=== PATIENT | male | born 2005 | race Caucasian/White ===

== ENCOUNTER 2024-03-23 17:23 | Emergency (ER) | payer OTHER, SELFPAY ==
--- NOTE | ~2024-03-23 | XR_ITS ---
CHEST RADIOGRAPH, PA AND LATERAL CLINICAL HISTORY: cough x 1 week . COMPARISON: None available TECHNIQUE: PA and lateral views of the chest. FINDINGS Small hiatal hernia. The remainder of the cardiomediastinal silhouette is otherwise unremarkable. The lungs are clear. Visualized osseous structures and soft tissues are unremarkable. IMPRESSION: No focal infiltrate or effusion. Reviewed, dictated and finalized at location A. [facility]
[2024-03-23 17:33] VITALS: BP 143/77; PULSE 99; RESP 20; TEMP 37.1; O2SAT 99
--- NOTE | 2024-03-23 19:23 | ED.NAVMDI ---
HPI - Nausea/Vomiting/Diarrhea General Chief complaint: Nausea/Vomiting/Diarrhea <Azucena Johnson, REGIONAL OWNER OPERATOR TRUCK DRIVER - Last Filed: 03/23/24 19:27> Stated complaint: n/v/d, dizziness <Azucena Johnson REGIONAL OWNER OPERATOR TRUCK DRIVER - Last Filed: 03/23/24 19:27> Time Seen by Provider: 03/23/24 19:20 <Azucena Johnson REGIONAL OWNER OPERATOR TRUCK DRIVER - Last Filed: 03/23/24 19:27> Focused HPI: Patient is a 19-year-old male who presents to the ER with a one-week history cough, sore throat, diarrhea, hemoptysis. He reports he went to his school clinic where they ?gave me a bunch of meds and sent me back home. Patient reports today he vomited and decided he should come to the ER for evaluation. He reports he has a history of asthma and has been wheezing intermittently. Patient denies any other medical history related to this ER visit. GENERAL: Well-appearing, obese, and in no acute distress. HEAD: Normocephalic, atraumatic. CHEST: Clear to auscultation. ?No respiratory distress. HEART: Regular rate and rhythm.? NEURO: ?Alert and oriented x3. Patient screened in triage and initial orders placed.? ?Additional care and disposition to be based upon?diagnostic testing and treatment. <Azucena Johnson, REGIONAL OWNER OPERATOR TRUCK DRIVER - Last Filed: 03/23/24 19:27> Focused HPI: Patient is a 19-year-old male who presents to the ER with a one-week history cough, sore throat, diarrhea, hemoptysis. He reports he went to his school clinic where they ?gave me a bunch of meds and sent me back home. Patient reports today he vomited and decided he should come to the ER for evaluation. He reports he has a history of asthma and has been wheezing intermittently. Patient denies any other medical history related to this ER visit. GENERAL: Well-appearing, obese, and in no acute distress. HEAD: Normocephalic, atraumatic. CHEST: Clear to auscultation. ?No respiratory distress. HEART: Regular rate and rhythm.? NEURO: ?Alert and oriented x3. Patient screened in triage and initial orders placed.? ?Additional care and disposition to be based upon?diagnostic testing and treatment. <Florecita Johnson PA-C - Last Filed: 03/23/24 23:20> Source: patient <Florecita Johnson PA-C - Last Filed: 03/23/24 23:20> Mode of arrival: ambulatory <Florecita Johnson PA-C - Last Filed: 03/23/24 23:20> Limitations: no limitations <ANGIE Lynn Last Filed: 03/23/24 23:20> History of Present Illness HPI Narrative: Agree with above HPI. Patient reported having 1 episode of vomiting today. Denies current nausea. Denies abdominal pain. Has had some diarrhea. Denies fevers. History of autism, ADHD. <ANGIE Lynn Last Filed: 03/23/24 23:20> Related Data Allergies/Adverse reactions: Allergies Allergy/AdvReac Type Severity Reaction Status Date / Time No Known Allergies Allergy Verified 03/23/24 17:30 <Azucena Johnson APRN - Last Filed: 03/23/24 19:27> Review of Systems Review of Systems: All systems reviewed & are unremarkable except as noted in HPI. <Florecita Johnson PA-C - Last Filed: 03/23/24 23:20> All systems reviewed & are unremarkable except as noted in HPI and below <Florecita Johnson PA-C - Last Filed: 03/23/24 23:20> Exam Narrative: GENERAL: Well appearing, morbidly obese with BMI of 51.8, non-toxic, in no acute distress. HEAD: Normocephalic, atraumatic. RESPIRATORY: Airway patent, respirations nonlabored. Clear to auscultation bilaterally, no rales, rhonchi, wheezing. No significant focal lung sounds. CARDIOVASCULAR: Regular rate and rhythm without murmurs, rubs, or gallops. ABDOMINAL: Soft, no tenderness throughout abdomen, nondistended. Normoactive BS. MUSCULOSKELETAL: Moves all extremities. No gross deformities. SKIN: Warm, dry, normal color. NEURO: A&O X3. Speech clear. PSYCHIATRIC: Appropriate mood and affect. Normal interaction. <Florecita Johnson PA-C - Last Filed: 03/23/24 23:20> Course Vital Signs Vital signs: Vital Signs Temperature 98.8 F 03/23/24 17:33 Pulse Rate 99 03/23/24 17:33 Respiratory Rate 20 03/23/24 17:33 Blood Pressure 143/77 H 03/23/24 17:33 Pulse Oximetry 99 03/23/24 17:33 Oxygen Delivery Room Air 03/23/24 17:33 Temperature 97.9 F 03/23/24 22:19 Pulse Rate 86 03/23/24 22:19 Respiratory Rate 16 03/23/24 22:19 Blood Pressure 118/86 03/23/24 22:19 Pulse Oximetry 98 03/23/24 22:19 Oxygen Delivery Room Air 03/23/24 17:33 <Azucena Johnson APRN - Last Filed: 03/23/24 19:27> Vital Signs Temperature 98.8 F 03/23/24 17:33 Pulse Rate 99 03/23/24 17:33 Respiratory Rate 20 03/23/24 17:33 Blood Pressure 143/77 H 03/23/24 17:33 Pulse Oximetry 99 03/23/24 17:33 Oxygen Delivery Room Air 03/23/24 17:33 Temperature 97.9 F 03/23/24 22:19 Pulse Rate 86 03/23/24 22:19 Respiratory Rate 16 03/23/24 22:19 Blood Pressure 118/86 03/23/24 22:19 Pulse Oximetry 98 03/23/24 22:19 Oxygen Delivery Room Air 03/23/24 17:33 <Florecita Johnson PA-C - Last Filed: 03/23/24 23:20> MDM - Nausea/Vomiting/Diarrhea MDM Narrative Medical decision making narrative: Patient presented to ED with 1 week history of URI symptoms, cough, reported having 1 episode of nausea with vomiting today. Vital signs are stable upon arrival. Patient is in no acute distress. States symptoms are resolved currently. Denies any abdominal pain, nausea. Chest x-ray was obtained and is clear. No evidence of focal infiltrate. Viral swabs are negative. Strep testing is also negative. Discuss these lab and imaging findings with patient and mother at bedside. Patient states he is feeling fine and would like to go home at this time. Denies any further nausea. Has been able to tolerate p.o. intake. Denies any other concerns. I do feel comfortable with this. Will prescribe Tessalon Perles and Zofran for home use as needed. Recommended follow-up with PCP for further evaluation. Discussed strict return precautions. Patient and mother voiced understanding. Discharged in stable condition. <Florecita Johnson PA-C - Last Filed: 03/23/24 23:20> Medical Records Attestation: I reviewed the patient's medical records. <Florecita Johnson PA-C - Last Filed: 03/23/24 23:20> Lab Data Attestation: I reviewed the patient's lab results. <Florecita Johnson PA-C - Last Filed: 03/23/24 23:20> Labs: Lab Results 03/23/24 Range/Units 20:17 Influenza A (RT-PCR) Negative (Negative) Influenza B (RT-PCR) Negative (Negative) RSV (RT-PCR) Negative (Negative) SARS-CoV-2 RNA (RT-PCR) Negative (Negative) Group A Strep (PCR) Not detected (Negative) <Azucena Johnson, REGIONAL OWNER OPERATOR TRUCK DRIVER - Last Filed: 03/23/24 19:27> Lab Results 03/23/24 Range/Units 20:17 Influenza A (RT-PCR) Negative (Negative) Influenza B (RT-PCR) Negative (Negative) RSV (RT-PCR) Negative (Negative) SARS-CoV-2 RNA (RT-PCR) Negative (Negative) Group A Strep (PCR) Not detected (Negative) <Florecita Johnson PA-C - Last Filed: 03/23/24 23:20> Imaging Data Attestation: I personally reviewed and interpreted this imaging study as follows: <ANGIE Lynn Last Filed: 03/23/24 23:20> Radiologist's impression: ITS Impressions Chest X-Ray 03/23/24 19:46 IMPRESSION: No focal infiltrate or effusion. <ANGIE Lynn Last Filed: 03/23/24 23:20> Discharge Plan Discharge Clinical Impression: Upper respiratory infection Qualifiers: URI type: unspecified URI Qualified Code(s): J06.9 - Acute upper respiratory infection, unspecified Nausea and vomiting Qualifiers: Vomiting type: unspecified Qualified Code(s): R11.2 - Nausea with vomiting, unspecified <Azucena Johnson APRN - Last Filed: 03/23/24 19:27> Patient Disposition: Home, Self-Care <Azucena Johnson APRN - Last Filed: 03/23/24 19:27> Condition: Stable <Azucena Johnson APRN - Last Filed: 03/23/24 19:27> Instructions: Antibiotic Form, Gastroenteritis (ED), Acute Nausea and Vomiting (ED), Viral Syndrome (ED) <Azucena Johnson APRN - Last Filed: 03/23/24 19:27> Additional Instructions: Utilize zofran as needed for further nausea. Increase fluid intake. Recommend electrolyte rich fluids, gatorade, pedialyte, body armour. Recommend clear liquids or bland diet until symptoms improve, such as bananas, rice, applesauce, toast, or crackers. Utilize Tessalon Perles as needed for cough. Recommend Tylenol and Ibuprofen for discomfort and/or fevers. Recommend [id number] cough and cold medicines for symptom relief, Delsym, Mucinex, DayQuil, NyQuil, Sudafed, Robitussin, TheraFlu. Follow with primary care doctor for further evaluation. Return to the ED if you experience chest pain, difficulty breathing, unable to keep down food or drink, severe pain, persistent fevers, rectal bleeding, vomiting blood, or any other symptoms of concern. <Azucena Johnson APRN - Last Filed: 03/23/24 19:27> Patient Language: Hungarian <Azucena Johnson APRN - Last Filed: 03/23/24 19:27> Prescriptions: New benzonatate 200 mg capsule 200 mg PO TID PRN (Reason: cough) Qty: 20 0RF ondansetron 4 mg tablet,disintegrating 4 mg PO Q8H PRN (Reason: nausea and vomiting) Qty: 15 0RF <Azucena Johnson APRN - Last Filed: 03/23/24 19:27> Follow-up/Referrals: PHYSICIAN NOT ON STAFF,NONSTAFF [Primary Care Provider] - <Azucena Johnson APRN - Last Filed: 03/23/24 19:27> Time of Disposition: 22:02 <Azucena Johnson APRN - Last Filed: 03/23/24 19:27> 22:02 <Florecita Johnson PA-C - Last Filed: 03/23/24 23:20>
[2024-03-23 20:46] LABS: Strep Group A RT-PCR NOT DETECTED (Negative)
[2024-03-23 20:58] LABS: Influenza A QL RT-PCR Negative (Negative); Influenza B QL RT-PCR Negative (Negative); RSV RNA, RT-PCR Negative (Negative); SARS-CoV-2 RNA PCR Negative (Negative)
--- OUTSIDE RECORDS SUMMARY | 2024-03-23 21:07 | XMS_ITS | Encounter Summary ---
Author Organization [facility] Address [address] [place] [address] Care Team Providers Care Cable Television Program Director Name Role Phone Sary Franklin MD Primary Care Provider + Raya Wheeler Primary Care Provider [phone] Encounter Details Date Type Department Care Team (Late st Contact Info) Description 01/24/2018 Telephone [facility] - [facility] [address] [place] [phone] Ellie Falcon Social History Tobacco Use Types Packs/Day Years Used Date Smoking Tobacco: Passive Smo ke Exposure - Never Smoker Smokeless Tobacco: Never Alcohol Use Standard Drinks/Week Comments No 0 (1 standard drink = 0.6 oz pur e alcohol) Sex and Gender Information Value Date Recorded Sex Assigned at Not on file Gender Identity Not on file Sexual Orientation Not on file documented as of this encounter Functional Status Functional Status Response Date of Assess ment Is person deaf or have serious hearing difficult y? No 10/11/2017 Is person blind or have serious difficulty seein g? No 10/11/2017 Does person have serious dif ficulty walking/climbing stairs? No 10/11/2017 Does person have difficulty dressing/bathing? No 10/11/2017 Does person have difficulty doing errands alone? Yes 10/11/2017 Cognitive Status Response Date of Assessm ent Does person have difficulty concentrating/remembering/making decisions? 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 COVID-19 Under Investigation 04/25/2020 04/25/2020 04/26/2020 10:44 AM AUTO LEASING MANAGER COVID-19 Under Investigation 08/08/2020 08/08/2020 08/09/2020 3:21 AM CDT COVID-19 Confirmed 08/08/2020 08/08/2020 4:33 AM CDT COVID-19 Under Investigation 05/10/2021 05/10/2021 05/10/2021 12:14 PM CDT documented as of this encounter Care Teams Cable Television Program Director Relationship Specialty Start Date End Date Sary Franklin MD [address] [facility] [address] [place], [place] [id number] PCP - General Pediatrics 08/01/13 06/14/22 Raya Wheeler PA [address] [place] [address] PCP - General Physician Violin Tutor 06/15/22 documented as of this encounter
--- OUTSIDE RECORDS SUMMARY | 2024-03-23 21:07 | XMS_ITS | Encounter Summary ---
Author Organization [facility] Address [address] [facility] [place] [address] Care Team Providers Care Director Broadcast Name Role Phone Sary Franklin MD Primary Care Provider + Raya Wheeler Primary Care Provider [phone] Reason for Visit * Reason Onset Date Comments Question 12/17/2016 Encounter Details Date Type Department Care Team (Late st Contact Info) Description 12/17/2016 Telephone [facility] Pediatrics - GI [address] [place] [address] Maik Gagnon MD [facility] [place] [address] Question Social History Tobacco Use Types Packs/Day Years [...] on file documented as of this encounter Miscellaneous Notes * Telephone Encounter - Julia Meadows RN - 12/17/2016 2:11 PM CDT Will forward to Dr. Gagnon for review. * Telephone Encounter - Maryan Lyle - 12/17/2016 2:07 PM CDT Mom wondering if Dr. Gagnon was going to order miralax as it has not been sent to pharmacy. documented in this encounter Plan of Treatment Not on file documented as of this encounter Visit Diagnoses Not on filedocumented in this encounter Additional Health Concerns Infection Onset Date Last Indicated Resolved Time MRSA 07/29/2012 07/29/2012 10/11/2017 11:3 2 AM CDT COVID-19 Under Investigation 11/09/2019 11/09/2019 11/11/2019 2:13 PM CDT COVID-19 Under Investigation 01/21/2020 01/21/2020 01/22/2020 8:23 PM CARDIOVASCULAR TECH COVID-19 Under Investigation 04/25/2020 04/25/2020 04/26/2020 10:44 AM CARDIOVASCULAR TECH COVID-19 Under Investigation 08/08/2020 08/08/2020 08/09/2020 3:21 AM CDT COVID-19 Confirmed 08/08/2020 08/08/2020 4:33 AM CDT COVID-19 Under Investigation 05/10/2021 05/10/2021 05/10/2021 12:14 PM CDT documented as of this encounter Care Teams Director Broadcast Relationship Specialty Start Date End Date Sary Franklin MD [address] [facility] [address] [place] [address] PCP - General Pediatrics 08/01/13 06/14/22 Raya Wheeler PA [address] [place] [phone] PCP - General Physician Fuel Cell Builder 06/15/22 documented as of this encounter
--- OUTSIDE RECORDS SUMMARY | 2024-03-23 21:07 | XMS_ITS | Clinical Summary ---
Author Organization [facility] Address [address] [place] [address] Phone Care Team Providers Care Registration Officer Name Role Phone Raya Wheeler Primary Care Provider [phone] Allergies No known active allergies Medications Melatonin 10 MG Capsule Take 10 mg every day by oral route in the evening. Active Montelukast Sodium (SINGULAIR PO) Activ e Cholecalciferol (Vitamin D) 50 MCG (1999) Capsule Take by oral route. Active traZODone (DESYREL) 50 MG TabletIndication s:Recurrent major depressive episodes, moderate (HCC) Take 1 Tablet by mouth nightly. 30 Tablet 3 02/15/2024 Active cloNIDine (CATAPRES) 0.3 MG Tablet Take 1 Tablet by mouth nightly. 90 Tablet 02/15/2024 Active cloNIDine (CATAPRES) 0.1 MG Tablet Take 1 Tablet by mouth nightly. 90 Tablet 02/15/2024 Active citalopram (CeleXA) 40 MG TabletIndication s:Recurrent major depressive episodes, moderate (HCC) Take 1 Tablet by mouth daily. 90 Tablet 02/15/2024 Active Aripiprazole (Abilify) 20 MG TabletIndication s:Recurrent major depressive episodes, moderate (HCC) Take 1 Tablet by mouth nightly. 90 Tablet 02/15/2024 Active Active Problems Problem Noted Date Diagnosed Date Attention deficit hyperactivity disorder, combin ed type 11/27/2019 Recurrent major depressive episodes, moderate Encounters Date Type Department Care Team Description 02/15/2024 11:00 AM GEL COATER Office Visit [facility] [address] [place] [address] [phone] Kenyatta Mitchell, CARMELITA, SALIMA Recurrent major depressive episodes, moderate (HCC) 02/15/2024 Travel 02/14/2024 Travel 01/11/2024 9:00 AM GEL COATER Office Visit [facility] [address] [place] [address] [phone] Kenyatta Mitchell, CARMELITA, LINEN ATTENDANT Recurrent major depressive episodes, moderate (HCC) (Primary Dx) 01/10/2024 Travel from Last 3 Months Immunizations Immunization Administration Dates Next Due DTAP VACCINE 08/30/2007,08/18/2004 DTAP/HEPB/IPV Vaccine 2003,2003,04/01 Hib Vaccine,unspecified Formulation 2003,0 2003,2003 Human Papillomavirus Vaccine (HPV), quadrivalent 05/22/2015,09/25/2014 Inactivated Polio Vaccine 08/30/2007 Influenza Vaccine, Quadrivalent, PF 12/20/2022,1 04/11/2017,11/29/2016 Influenza Vaccine,unspecifie d Formulation 02/20/2004 MMR Vaccine 02/20/2004 MMRV 08/30/2007 Meningococcal Vaccine 11/20/2020,09/25/2014 Pneumococcal Vaccine Peds - 7 Valent ,2003,2003,04/26 TDAP Vaccine 09/25/2014 Varicella Vaccine Live 08/18/2004 Family History Medical History Relation Name Comments Anxiety disorder Mother Depression Mother Relation Name Status Comments Mother Social History Tobacco Use Types Packs/Day Years Used Date Smoking Tobacco: Never Smokeless Tobacco: Never Tobacco Cessation:Counseling Given: Not Answered Alcohol Use Standard Drinks/Week Comments Never 0 (1 standard drink = 0.6 oz pur e alcohol) [facility] Utilities Answer Date Recorded In the past 12 months has e [employer], gas, oil, or water company threatened to shut off services in your home? No 02/14/2024 Social Connection and Isolat ion Panel [NHANES] Answer Date Recorded In a typical week, how many times do you talk on the phone with family, friends, or neighbors? More than three times a week 02/14/2024 How often do you get togethe r with friends or relatives? More than three times a week 02/14/2024 How often do you attend chur or yazidism services? More than 4 times per year 02/14/2024 Do you belong to any clubs o r organizations such as jehovah's witness groups, unions, fraternal or athletic groups, or school groups? No 02/14/2024 How often do you attend meet ings of the clubs or organizations you belong to? Never 02/14/2024 Are you , , di vorced, , never , or living with a partner? Never 02/14/2024 AUDIT-C Answer Date Recorded Q1: How often do you have a drink containing alcohol? Never 02/14/2024 Q2: How many drinks containi ng alcohol do you have on a typical day when you are drinking? Patient does not drink Q3: How often do you have si x or more drinks on one occasion? Never 02/14/2024 Overall Financial Resource Strain (CARDIA) Answe r Date Recorded How hard is it for you to pa y for the very basics like food, housing, medical care, and heating? Not hard at all 02/14/2024 PHQ-2 Answer Date Recorded Total Score - Questions 1-9 13 12/29 [facility] - Occupational Stress Questionnaire Answer Date Recorded Do you feel stress - tense, restless, nervous, or anxious, or unable to sleep at night because your mind is troubled all the time - these days? Only a little 02/14/2024 Exercise Vital Sign Answer Date Recorde d On average, how many days pe r week do you engage in moderate to strenuous exercise (like a brisk walk)? 3 days 02/14/2024 On average, how many minutes do you engage in exercise at this level? 30 min 02/14/2024 Hunger Vital Sign Answer Date Recorded Within the past 12 months, y ou worried that your food would run out before you got the money to buy more. Never true 02/14/20 24 Within the past 12 months, t he food you bought just didn't last and you didn't have money to get more. Never true 02/14/2024 PRAPARE - Transportation Answer Date Re corded In the past 12 months, has l ack of transportation kept you from medical appointments or from getting medications? No 01/28 In the past 12 months, has l ack of transportation kept you from meetings, work, or from getting things needed for daily living? No 02/14/2024 Housing Stability Vital Sign Answer Zeeshan e Recorded In the last 12 months, was t here a time when you were not able to pay the mortgage or rent on time? No 02/14/2024 In the past 12 months, how m any times have you moved where you were living? 1 02/14/2024 At any time in the past 12 m [facility], were you homeless or living in a penitentiary (including now)? No 02/14/2024 Sexually Active Control Partners Comments Never Sex and Gender Information Value Date Recorded Sex Assigned at Not on file Legal Sex Male 1:49 PM CDT Gender Identity Male 09/12/2023 1:49 PM CDT Sexual Orientation Not on file Last Filed Vital Signs Vital Sign Reading Time Taken Comments Blood Pressure 142/82 01/11/2024 9:06 AM GEL COATER Pulse 70 02/15/2024 11:01 AM GEL COATER Temperature - - Respiratory Rate 22 02/15/2024 11:01 AM GEL COATER Oxygen Saturation 98% 02/15/2024 11:01 AM GEL COATER Inhaled Oxygen Concentration - - Weight 180.5 kg (398 lb) 02/15/2024 11:01 AM GEL COATER Height 185.4 cm (6' 1 ) 02/15/2024 11:01 AM GEL COATER Body Mass Index 52.51 02/15/2024 11:01 AM GEL COATER Plan of Treatment Upcoming Encounters Date Type Department Care Team (Late st Contact Info) Description 05/23/2024 10:30 AM CDT Office Visit [facility] [address] [place] [address] [phone] Kenyatta Mitchell, FUSE MAKER, LINEN ATTENDANT [address] [place] [phone] (Work) Health Maintenance Due Date Last Done Comments Meningococcal B Immunization (1 of 2 - Standard) 2019 Influenza Immunization (#1) 10/30/202311/29, 02/08/2018, 11/29/2016, Additional history exists SARS-COV-2 Immunization (1 - 2023- season) 2023 DTaP/Tdap/Td Immunization (7 - Td or Tdap) 09/25/2024 09/25/2014, 08/30/2007, 08/18/2004, Additional history exists Respiratory Syncytial Virus (RSV) Immunization (Adult) (1 - 1-dose 75+ series) 2078 Hepatitis B Immunization Completed 004, 2003, 2003 Pneumococcal Immunization Combined Aged Out 02/20/2004, 2003, 2003, Additional history exists No longer eligible based on patient's age to complete this topic Human Papillomavirus (HPV) Immunization Completed 05/22/2015, 09/25/2014 Hepatitis C Virus (HCV) Screening Completed 09/12/2020 Meningococcal Immunization (ACWY) Completed 11/20/2020, 09/25/2014 Rotavirus Immunization Aged Out No lo nger eligible based on patient's age to complete this topic Insurance MEDICAID [employer] Care Teams Registration Officer Relationship Specialty Start Date End Date Raya Wheeler PAC [address] [place] [address] PCP - General Physician Requirements Manager 01/09/24
--- OUTSIDE RECORDS SUMMARY | 2024-03-23 21:08 | XMS_ITS | Clinical Summary ---
Author Organization [facility] Address [address] [place] [address]. 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 Gender Identity Not on file Sexual Orientation Not on file Plan of Treatment Health Maintenance Due Date Last Done Comments Annual Physical 2006 HPV Vaccines (1 - Male 3-dos e series) 2018 Hepatitis C 2021 DTaP, Tdap and Td Vaccines ( 1 - Tdap) 2022 Hepatitis B Vaccines (1 of 3 - 19+ 3-dose series) 2022 COVID-19 Vaccine ( - 2023-2 5 season) 2023 Influenza Adult (#1) 2023 Meningococcal Vaccine Aged Out No jamison tri eligible based on patient's age to complete this topic Pneumococcal Vaccine: Pediat rics (0 to 5 Years) and At-Risk Patients (6 to 64 Years) Aged Out No longer eligible b ased on patient's age to complete this topic RSV Immunizations Under 20 Months Aged Out No longer eligible based on patient's age to complete this topic
--- OUTSIDE RECORDS SUMMARY | 2024-03-23 21:08 | XMS_ITS | Clinical Summary ---
Author Organization [facility] Address [address] [place] [address] Care Team Providers Care Rum Processing Operator Name Role Phone Raya Wheeler Primary Care Provider Source Comments [facility],non-owned Affiliates and Associated Physician Practices is amultiple site organization consisting of ambulatory clinics and hospital sitesin [place], [place], [place] and [place]. This disclosure is being madepursuant to the Care Everywhere program and may not contain all information available regarding this patient. Last updated 17.[facility] Allergies No known active allergies Medications * Be aware that medications may not be up to date on this document. Alwaysverify current medications with the patient. Medication Sig Dispensed Refills Start Date End Date Status melatonin 5 MG capsule Take 1 (one) capsule by mouth at bedtime Active ARIPiprazole (ABILIFY) 5 MG tablet 06/02/2021 Active cloNIDine (CATAPRES) 0.3 MG tablet 05/29/2021 Active ferrous sulfate 325 (65 FE) MG tablet Take 1 (one) tablet by mouth 2 times daily with morning and evening meal 60 tablet 4 08/31/2021 Active fluticasone propionate (FLONASE) 50 MCG/ACT nasal spray [place] 1 (one) spray into each nostril once daily Aim at outer edges inside nostrils. 16 g 5 09/29/2021 Active polyethylene glycol 3350 (Miralax) 17 GM/SCOOP powder Take 17 (seventeen) g by mouth once daily as needed for Constipation 507 g 5 04/27/2022 Active Additional Information Patient not taking.Reported on 10/26/2023 montelukast (Singulair) 10 MG tablet TAKE ONE TABLET BY MOUTH ONCE DAILY AT BEDTIME 30 tablet 5 05/24/2022 Active Cholecalciferol 50 MCG (2000 UT) Take 4,000 Units by mouth once daily 60 capsule 5 05/26/2022 Active citalopram (CeleXA) 20 MG tablet Take 1 (one) tablet by mouth once daily 05/24/2022 Active QUEtiapine (SEROquel) 25 MG tablet Take 1 (one) tablet by mouth at bedtime 12/22/2022 Active Vyvanse 30 MG capsule 04/27/2023 Active pantoprazole EC (Protonix) 40 MG tablet 05/27/2023 Active cloNIDine (Catapres) 0.1 MG tablet 08/10/2023 Active ARIPiprazole (Abilify) 10 MG tablet 07/27/2023 Active metFORMIN ER 24hr (Glucophage XR) 500 MG tabletIndications: Pre-diabetes,Weigh t gain due to medication Take 1 (one) tablet by mouth daily with dinner 30 tablet 1 08/15/2023 Active Additional Information Patient not taking.Reported on 10/26/2023 vitamin D, ergocalciferol, (Drisdol) 1.25 MG (21001 UT) capsuleIndications :Vitamin D Deficiency Take 1 (one) capsule by mouth every 7 days Reasons: Vitamin D Deficiency 4 capsule 3 08/16/2023 Active sodium chloride (Smyer; Baby Preston) 0.65 % nasal sprayIndications:E pistaxis [place] 1 (one) spray into each nostril as needed for Dry Nose 50 mL 2 10/17/2023 Active Active Problems Patient Care Coordination No te Formatting of this note migh t be different from the original. Do you have any cultural preferences or concerns? No 08/21/21 Problem Noted Date Diagnosed Date Crohn's disease of large intestine with rectal b leeding 04/19/2023 Overview (04/19/2023): Per colonoscopy at [facility] 10-10-17, bx confirmed Pre-diabetes 12/20/2022 ADHD 06/15/2022 Asperger syndrome 06/15/2022 MASHA (obstructive sleep apnea) 06/16/2021 Gastroesophageal reflux disease 06/16/2021 Fatty liver disease, nonalcoholic 03/24/2021 Assessment & Plan (08/21/2021 2:12 PM CDT): NAFL is the most common cause for liver related morbidity in children and adolescents with obesity. It is fast becoming a leading cause of liver transplants in young adults. The only way to prevent progression is weight loss. Plan - I discussed extensively with caregivers the probable etiology for Anders's symptoms as well as treatment options. - Diet and behavior modifications are most important factors such as eating healthy Plenty of fruits and vegetables and increased fluid intake. Avoidance of tea or sodas, or any processed food with high acidic contents and lots of preservatives. - 20 min aerobic exercise a day is advised - No SODA and JUICE for 3 months, and try cutting back on milkshakes. - Proper sleep and daily routine for meals discussed. - Planned labs to include : CMP, direct bili and PT/INR - Imaging studies would be based on patient progress. - Please keep us informed of progress and followup in clinic in 6 months, or earlier if any concerns. Morbid obesity with body mas s index (BMI) greater than 99th percentile for age in childhood 09/16/2020 Overview (11/30/2023): IMO Replacement Utility 11/30/2023 Acanthosis nigricans 09/16/2020 Major depressive disorder, single episode, sever e 11/06/2013 Overview (11/28/2014): Resolved Problems Problem Noted Date Diagnosed Date Resolved Date Abdominal pain, right lower quadrant 05/10/2021 06/15/2022 Fever 05/10/2021 05/24/2021 Nausea and vomiting 05/10/2021 06/16/19 23 Appendicitis 05/10/2021 06/15/2022 Steatohepatitis 09/16/2020 06/15/2022 Vitamin D deficiency 09/16/2020 023 Leg pain, bilateral 09/16/2020 06/16/19 Sleep disturbance 09/16/2020 06/15/2022 Loud snoring 09/16/2020 06/15/2022 Exposure to SARS-associated coronavirus 08/08/2020 06/15/2022 IBD (inflammatory bowel disease) 12/05/2017 06/15/2022 Elevated liver enzymes 09/15/201706/15 Chronic constipation 06/15/2017 023 History of MRSA infection 06/15/2017 Blood in stool 10/20/2016 06/15/2022 Crohn's disease of small int estine without complication 06/15/2022 Overweight 06/15/2022 Encounters Date Type Department Care Team Description 01/02/2024 Refill [facility] [address] [place] [phone] Lamar Martinez DO Refill Request from Last 3 Months Immunizations Name Administration Dates Next Due DTAP/HEP B/IPV 2003,2003,2003 DTaP VACCINE IM (6wk-6yrs) 08/30/2007,08/18/2004 HIB VACCINE 2003,2003,2003 Human Papilloma Virus Braydon valent Vaccine 05/22/2015,09/25/2014 INFLUENZA VACCINE 01/02/2009,02/20/2004 INFLUENZA VACCINE, QUADR. (F LUZONE; FLULAVAL; FLUARIX; AFLURIA QUADRIVALENT; 6MO+), 0.5 ML (IIV4) 12/20/2022,02/08/2018,11/29/2016 MENINGOCOCCAL CONJUGATE (MCV4P) 11/20/2020,09/25 MMR 02/20/2004 MMR/VARICELLA 08/30/2007 PNEUMOCOCCAL PCV7 CONJ, PEDS 02/20/2004, 2003,2003,04/26 POLIO IPV 08/30/2007 TDAP (7yrs+) 09/25/2014 VARICELLA 08/18/2004 Family History Medical History Relation Name Comments Obesity Brother Obesity Father CAD (Coronary Artery Disease) Maternal Grandfather Cancer Maternal Grandfather Diabetes; unknown type Maternal Grandfather Heart Failure Maternal Grandfather Blood Clots Maternal Grandmother Colon polyps Maternal Grandmother Obesity Maternal Grandmother Other Maternal Grandmother Stomach ulcers, IBS Bipolar Disorder Mother Diabetes - Type 2 Mother Hyperlipidemia Mother Hypertension Mother Obesity Mother Cancer Paternal Grandfather Diabetes; unknown type Paternal Grandfather Diabetes; unknown type Paternal Grandmother Cancer - Colon Neg Hx Crohn's Disease Neg Hx Other - Hepatic/Liver Neg Hx Ulcerative Colitis Neg Hx Relation Name Status Comments Brother Father Maternal Grandfather Maternal Grandmother Mother Paternal Grandfather Paternal Grandmother Social History Tobacco Use Types Packs/Day Years Used Date Smoking Tobacco: Never Passive Smoke Exposure: Yes Smokeless Tobacco: Never Tobacco Cessation:Counseling Given: Not Answered Comments:Grandma smokes Alcohol Use Standard Drinks/Week Comments No 0 (1 standard drink = 0.6 oz pur e alcohol) AUDIT-C Answer Date Recorded Q1: How often do you have a drink containing alcohol? Never 06/01/2023 Q2: How many drinks containi ng alcohol do you have on a typical day when you are drinking? Patient does not drink Q3: How often do you have si x or more drinks on one occasion? Never 06/01/2023 PHQ-2 Answer Date Recorded Patient Health Questionnaire-2 Score 0 10/26/2023 Sex and Gender Information Value Date Recorded Sex Assigned at Not on file Gender Identity Not on file Sexual Orientation Not on file Last Filed Vital Signs Vital Sign Reading Time Taken Comments Blood Pressure 118/72 10/26/2023 10:00 AM CDT Pulse 67 10/26/2023 10:00 AM CDT Temperature 36.9 ??C (98.5 ??F) 10/26/2023 1 0:00 AM CDT Respiratory Rate 16 10/26/2023 10:0 0 AM CDT Oxygen Saturation 97% 10/26/2023 10: 00 AM CDT Inhaled Oxygen Concentration - - Weight 172.7 kg (380 lb 11.2 oz) 2023 10:00 AM CDT Height 184.8 cm (6' 0.75 ) 10/26/2023 1 0:00 AM CDT Body Mass Index 50.57 10/26/2023 10:00 AM CDT Plan of Treatment Health Maintenance Due Date Last Done Comments HIV SCREENING 2018 MENINGOCOCCAL (Group B) VACCINE (1 of 2 - Standard) 2019 COVID-19 VACCINE ( season) 2023 INFLUENZA VACCINE (#1) 2023 , 02/08/2018, 11/29/2016, Additional history exists DEPRESSION SCREENING 02/29/2024 04/19/2023, 12/20/2022, 12/20/2022, Additional history exists DTAP/TDAP/TD VACCINES (7 - Td or Tdap) 09/25/2024 09/25/2014, 08/30/2007, 08/18/2004, Additional history exists ZOSTER VACCINE (1 of 2) 2053 HEPATITIS B VACCINE Completed 2003, 2003, 2003 HIB VACCINE Aged Out 2003, 06/29, 2003 No longer eligible based on patient's age to complete this topic PNEUMOCOCCAL VACCINE Completed 02/20/2004, 2003, 2003, Additional history exists HPV VACCINE Completed 05/22/2015, 09/25/2014 HEPATITIS C SCREENING Completed 09/12/2020, 018 MENINGOCOCCAL VACCINE Completed 11/20/2020, 015 Procedures Procedure Name Priority Date/Time Associated Diagnosis Comments HEPATITIS C ANTIBODY Routine 09/12/2020 10:58 AM CDT Elevated liver enzymes from Last 3 Months or Most Recently Relevant to Health Maintenance Results * HEPATITIS C ANTIBODY (09/12/2020 10:58 AM CDT) Hepatitis C Antibody Non-react carmen Non-reac tive 09/12/2020 1:53 PM CDT [facility] Comment:Hepatitis C Antibody screen indicates no serologic evidence of past or current infection with Hepatitis C Virus. Patients with unexplained liver disease who are immunocompromised or suspected of having acute Hepatitis C infection may benefit from Nucleic Acid Test (NÉSTOR) for Hepatitis C Viral RNA to confirm Hepatitis C status. Blood BLOOD SPECIMEN / Unknown Lab Venipuncture / Unknown 09/12/2020 10:58 AM CDT 09/12/2020 12:13 PM CDT Cayden Bustos MD LAB - CHEMISTRY [facility] [address] [place] [address], [facility] [phone] from Last 3 Months or Most Recently Relevant to Health Maintenance Advance Directives * Full Code (Latest Code Status on File) Date Activated Date Inactivated Comments 05/10/2021 2:13 PM 05/11/2021 2:14 PM Care Teams Rum Processing Operator Relationship Specialty Start Date End Date Raya Wheeler PA [address] [place] [id number] PCP - General Physician Cdl B Driver 06/15/22
--- OUTSIDE RECORDS SUMMARY | 2024-03-23 21:08 | XMS_ITS | Patient Health Summary ---
Author Organization [facility] Address [address] [place] [address] Care Team Providers Care Enamel Sprayer Name Role Phone Raya Wheeler Primary Care Provider [phone] Note from [facility],non-owned Affiliates and Associated Physician Practices is amultiple site organization consisting of ambulatory clinics and hospital sitesin [place], [place], [place] and [place]. This disclosure is being madepursuant to the Care Everywhere program and may not contain all information available regarding this patient. Last updated 17.[facility] Allergies No known active allergies Medications * Be aware that medications may not be up to date on this document. Alwaysverify current medications with the patient. * melatonin 5 MG capsule Take 1 (one) capsule by mouth at bedtime * ARIPiprazole (ABILIFY) 5 MG tablet(Started 06/02/2021) * cloNIDine (CATAPRES) 0.3 MG tablet(Started 05/29/2021) * ferrous sulfate 325 (65 FE) MG tablet(Started 08/31/2021) Take 1 (one) tablet by mouth 2 times daily with morning and evening meal 4 refills by 08/31/2022 * fluticasone propionate (FLONASE) 50 MCG/ACT nasal spray(Started 09/29/2021) [place] 1 (one) spray into each nostril once daily Aim at outer edges inside nostrils. 5 refills by 09/29/2022 * polyethylene glycol 3350 (Miralax) 17 GM/SCOOP powder(Started 04/27/2022) Take 17 (seventeen) g by mouth once daily as needed for Constipation 5 refills by 04/27/2023 * montelukast (Singulair) 10 MG tablet(Started 05/24/2022) TAKE ONE TABLET BY MOUTH ONCE DAILY AT BEDTIME 5 refills by 05/24/2023 * Cholecalciferol 50 MCG (2000 UT)(Started 05/26/2022) Take 4,000 Units by mouth once daily 5 refills by 05/26/2023 * citalopram (CeleXA) 20 MG tablet(Started 05/24/2022) Take 1 (one) tablet by mouth once daily * QUEtiapine (SEROquel) 25 MG tablet(Started 12/22/2022) Take 1 (one) tablet by mouth at bedtime * Vyvanse 30 MG capsule(Started 04/27/2023) * pantoprazole EC (Protonix) 40 MG tablet(Started 05/27/2023) * cloNIDine (Catapres) 0.1 MG tablet(Started 08/10/2023) * ARIPiprazole (Abilify) 10 MG tablet(Started 07/27/2023) * metFORMIN ER 24hr (Glucophage XR) 500 MG tablet(Started 08/15/2023) Take 1 (one) tablet by mouth daily with dinner 1 refill by 08/14/2024 * vitamin D, ergocalciferol, (Drisdol) 1.25 MG (23081 UT) capsule(Started 08/16/2023) Take 1 (one) capsule by mouth every 7 days Reasons: Vitamin D Deficiency 3 refills by 08/15/2024 * sodium chloride ([place]; Baby [place]) 0.65 % nasal spray(Started 10/17/2023) Conover 1 (one) spray into each nostril as needed for Dry Nose 2 refills by 10/16/2024 Active Problems Problem Noted Date Diagnosed Date Crohn's disease of large intestine with rectal b leeding 04/19/2023 Pre-diabetes 12/20/2022 ADHD 06/15/2022 Asperger syndrome 06/15/2022 MASHA (obstructive sleep apnea) 06/16/2021 Gastroesophageal reflux disease 06/16/2021 Fatty liver disease, nonalcoholic 03/24/2021 Morbid obesity with body mas s index (BMI) greater than 99th percentile for age in childhood 09/16/2020 Acanthosis nigricans 09/16/2020 Major depressive disorder, single episode, sever e 11/06/2013 Resolved Problems Problem Noted Date Diagnosed Date Resolved Date Abdominal pain, right lower quadrant 05/10/2021 06/15/2022 Fever 05/10/2021 05/24/2021 Nausea and vomiting 05/10/2021 06/16/19 23 Appendicitis 05/10/2021 06/15/2022 Steatohepatitis 09/16/2020 06/15/2022 Vitamin D deficiency 09/16/2020 023 Leg pain, bilateral 09/16/2020 06/16/19 23 Sleep disturbance 09/16/2020 06/15/2022 Loud snoring 09/16/2020 06/15/2022 Exposure to SARS-associated coronavirus 08/08/2020 06/15/2022 IBD (inflammatory bowel disease) 12/05/2017 06/15/2022 Elevated liver enzymes 09/15/201706/15 Chronic constipation 06/15/2017 023 History of MRSA infection 06/15/2017 Blood in stool 10/20/2016 06/15/2022 Crohn's disease of small int estine without complication 06/15/2022 Overweight 06/15/2022 Immunizations * DTAP/HEP B/IPV(Given 2003, 2003, 2003) * DTaP VACCINE IM (6wk-6yrs)(Given 08/30/2007, 08/18/2004) * HIB VACCINE(Given 2003, 2003, 2003) * Human Papilloma Virus Quadrivalent Vaccine(Given 05/22/2015, 09/25/2014) * INFLUENZA VACCINE(Given 01/02/2009, 02/20/2004) * INFLUENZA VACCINE, QUADR. (FLUZONE; FLULAVAL; FLUARIX; AFLURIA QUADRIVALENT; 6MO+), 0.5 ML (IIV4)(Given 12/20/2022, 02/08/2018, 11/29/2016) * MENINGOCOCCAL CONJUGATE (MCV4P)(Given 11/20/2020, 09/25/2014) * MMR(Given 02/20/2004) * MMR/VARICELLA(Given 08/30/2007) * PNEUMOCOCCAL PCV7 CONJ, PEDS(Given 02/20/2004, 2003, 2003, 2003) * POLIO IPV(Given 08/30/2007) * TDAP (7yrs+)(Given 09/25/2014) * VARICELLA(Given 08/18/2004) Social History Tobacco Use Types Packs/Day Years [...] Mass Index 50.57 10/26/2023 10:00 AM CDT Procedures * COMPREHENSIVE METABOLIC PANEL(Performed 11/15/2023) Performed for Elevated liver enzymes * US ABDOMEN LIMITED(Performed 11/11/2023) Performed for Elevated liver enzymes * BILIRUBIN DIRECT(Performed 10/06/2023) Performed for Elevated LFTs, Fatty liver * VITAMIN D 25-HYDROXY(Performed 10/06/2023) Performed for Vitamin D insufficiency * COMPREHENSIVE METABOLIC PANEL(Performed 10/06/2023) Performed for Elevated LFTs * COMPREHENSIVE METABOLIC PANEL(Performed 08/15/2023) Performed for Elevated LFTs * VITAMIN D 25-HYDROXY(Performed 08/15/2023) Performed for Vitamin D insufficiency * CARDIAC RHYTHM STRIP ORDER(Performed 06/24/2023) * GROSS + MICRO EXAM (ILL)(Performed 06/23/2023) Performed for Colorectal polyps * IA ANRCT XM SURG REQ ANES GENERAL SPI/EDRL DX(Performed 06/23/2023) Performed for Colorectal polyps * CARDIAC RHYTHM STRIP ORDER(Performed 06/03/2023) * CARDIAC RHYTHM STRIP ORDER(Performed 06/02/2023) * GROSS + MICRO EXAM (ILL)(Performed 06/02/2023) Performed for Gastroesophageal reflux disease, unspecified whether esophagitis present, Melena, Nausea without vomiting * IA ED EGD FLEX TRANSORAL DX(Performed 06/02/2023) Performed for Gastroesophageal reflux disease, unspecified whether esophagitis present, Melena, Nausea without vomiting * GROSS + MICRO EXAM (ILL)(Performed 06/01/2023) Performed for Melena * IA COLONOSCOPY,BIOPSY(Performed 06/01/2023) Performed for Melena * COMPREHENSIVE METABOLIC PANEL(Performed 12/20/2022) Performed for Fatty liver disease, nonalcoholic, Pre-diabetes * TSH REFLEX FREE T4(Performed 12/20/2022) Performed for Morbid obesity with body mass index (BMI) greater than 99th percentile for age in childhood (HCC), Pre-diabetes * HEMOGLOBIN A1C(Performed 12/20/2022) Performed for Pre-diabetes * CBC W AUTO DIFFERENTIAL(Performed 12/20/2022) Performed for Fatty liver disease, nonalcoholic, Pre-diabetes * XR THORACIC SPINE 3VW(Performed 12/13/2022) Performed for Acute bilateral thoracic back pain * XR LUMBAR SPINE 4VW OR MORE(Performed 12/13/2022) Performed for Lumbar back pain * VITAMIN D 25-HYDROXY(Performed 05/21/2022) Performed for Morbid obesity with body mass index (BMI) greater than 99th percentile for age in childhood (HCC), Fatty liver disease, nonalcoholic, Steatohepatitis, Vitamin D deficiency, Chronic constipation * PT-INR SLH(Performed 05/21/2022) Performed for Morbid obesity with body mass index (BMI) greater than 99th percentile for age in childhood (HCC), Fatty liver disease, nonalcoholic, Steatohepatitis, Vitamin D deficiency, Chronic constipation * LIPID PROFILE(Performed 05/21/2022) Performed for Morbid obesity with body mass index (BMI) greater than 99th percentile for age in childhood (HCC), Fatty liver disease, nonalcoholic, Steatohepatitis, Vitamin D deficiency, Chronic constipation * BILIRUBIN DIRECT(Performed 05/21/2022) Performed for Morbid obesity with body mass index (BMI) greater than 99th percentile for age in childhood (HCC), Fatty liver disease, nonalcoholic, Steatohepatitis, Vitamin D deficiency, Chronic constipation * HEMOGLOBIN A1C(Performed 05/21/2022) Performed for Morbid obesity with body mass index (BMI) greater than 99th percentile for age in childhood (HCC), Fatty liver disease, nonalcoholic, Steatohepatitis, Vitamin D deficiency, Chronic constipation * COMPREHENSIVE METABOLIC PANEL(Performed 05/21/2022) Performed for Morbid obesity with body mass index (BMI) greater than 99th percentile for age in childhood (HCC), Fatty liver disease, nonalcoholic, Steatohepatitis, Vitamin D deficiency, Chronic constipation * GGT(Performed 05/21/2022) Performed for Liver cell damage * SPLIT NIGHT STUDY(Performed 12/08/2021) Performed for MASHA (obstructive sleep apnea) * SPLIT NIGHT STUDY(Performed 09/20/2021) Performed for MASHA (obstructive sleep apnea) * IRON + TRANSFERRIN PANEL(Performed 08/21/2021) Performed for Low iron * FERRITIN(Performed 08/21/2021) Performed for Low iron * BILIRUBIN DIRECT(Performed 08/21/2021) Performed for Fatty liver disease, nonalcoholic * PT-INR SLH(Performed 08/21/2021) Performed for Fatty liver disease, nonalcoholic * COMPREHENSIVE METABOLIC PANEL(Performed 08/21/2021) Performed for Fatty liver disease, nonalcoholic * VITAMIN D 25-HYDROXY(Performed 08/21/2021) Performed for Morbid obesity with body mass index (BMI) greater than 99th percentile for age in childhood (HCC), Vitamin D deficiency * URINE MICROSCOPIC ONLY REFLEX TO CULTURE(Performed 05/10/2021) * URINALYSIS REFLEX MICROSCOPIC REFLEX CULTURE(Performed 05/10/2021) * CT ABDOMEN PELVIS W CONTRAST(Performed 05/10/2021) Performed for Abdominal pain, right lower quadrant, Fever, unspecified fever cause, Nausea and vomiting, intractability of vomiting not specified, unspecified vomiting type * LIPASE BLOOD(Performed 05/10/2021) * COMPREHENSIVE METABOLIC PANEL(Performed 05/10/2021) * CBC W AUTO DIFFERENTIAL(Performed 05/10/2021) * SARS-COV-2 (COVID-19)+INFLU A+B PCR RAPID(Performed 05/10/2021) * HEMOGLOBIN A1C(Performed 04/20/2021) Performed for Morbid obesity with body mass index (BMI) greater than 99th percentile for age in childhood (HCC) * GLUCOSE(Performed 04/20/2021) Performed for Morbid obesity with body mass index (BMI) greater than 99th percentile for age in childhood (HCC) * VITAMIN D 25-HYDROXY(Performed 04/20/2021) Performed for Morbid obesity with body mass index (BMI) greater than 99th percentile for age in childhood (HCC) * LIPID PROFILE(Performed 04/20/2021) Performed for Morbid obesity with body mass index (BMI) greater than 99th percentile for age in childhood (HCC) * GGT(Performed 04/20/2021) Performed for Morbid obesity with body mass index (BMI) greater than 99th percentile for age in childhood (HCC) * HEPATIC FUNCTION PANEL(Performed 04/20/2021) Performed for Morbid obesity with body mass index (BMI) greater than 99th percentile for age in childhood (HCC) * CBC W/O DIFFERENTIAL(Performed 12/05/2020) Performed for Hypertension, unspecified type * COMPREHENSIVE METABOLIC PANEL(Performed 12/05/2020) Performed for Hypertension, unspecified type * HEMOGLOBIN A1C(Performed 12/05/2020) Performed for Hypertension, unspecified type * LIPID PROFILE(Performed 12/05/2020) Performed for Hypertension, unspecified type * XR KNEE LEFT 4VW OR MORE(Performed 11/07/2020) Performed for Left knee pain, unspecified chronicity * CULTURE URINE(Performed 10/13/2020) Performed for UTI symptoms * URINALYSIS - POCT (IP) BEAKER INTERFACE(Performed 10/13/2020) Performed for UTI symptoms * URINALYSIS - POCT (IP) NOTIFICATION(Performed 10/13/2020) Performed for UTI symptoms * IR BIOPSY TRANSCATHETER(Performed 10/06/2020) Performed for Elevated liver enzymes * PATHOLOGY TISSUE EXAM (STL)(Performed 10/06/2020) Performed for Elevated liver enzymes * PERIPHERAL IV NOTE(Performed 10/06/2020) * ENDOTRACHEAL TUBE NOTE(Performed 10/06/2020) * XR KNEE LEFT 4VW OR MORE(Performed 09/20/2020) Performed for Acute pain of left knee * PTT SLH(Performed 09/12/2020) Performed for Elevated liver enzymes * HEPATITIS B SURFACE ANTIGEN W RFLX CONFIRMATION(Performed 09/12/2020) Performed for Elevated liver enzymes * HEMOGLOBIN A1C(Performed 09/12/2020) Performed for Overweight * LIPID PROFILE(Performed 09/12/2020) Performed for Overweight * CK BLOOD(Performed 09/12/2020) Performed for Elevated liver enzymes * HEPATITIS C ANTIBODY(Performed 09/12/2020) Performed for Elevated liver enzymes * HEPATITIS B SURFACE ANTIBODY(Performed 09/12/2020) Performed for Elevated liver enzymes * WZTUQ-3-KEAPSKBVLAF BLOOD PHENOTYPING PANEL(Performed 09/12/2020) Performed for Elevated liver enzymes * MICROSOMAL ANTIBODY LIVER/KIDNEY(Performed 09/12/2020) Performed for Elevated liver enzymes * BEVERLY BLOOD SCREEN W/REFLEX TITER(Performed 09/12/2020) Performed for Elevated liver enzymes * IGA BLOOD(Performed 09/12/2020) Performed for Elevated liver enzymes * TISSUE TRANSGLUTAMINASE AB IGA(Performed 09/12/2020) Performed for Elevated liver enzymes * CERULOPLASMIN(Performed 09/12/2020) Performed for Elevated liver enzymes * GGT(Performed 09/12/2020) Performed for Elevated liver enzymes * HEPATIC FUNCTION PANEL(Performed 09/12/2020) Performed for Elevated liver enzymes * CBC W AUTO DIFFERENTIAL(Performed 09/12/2020) Performed for Elevated liver enzymes * LYSOSOMAL ACID LIPASE DEFICIENCY (FILIPPO-D)(Performed 09/12/2020) Performed for Elevated liver enzymes * SMOOTH MUSCLE ANTIBODY(Performed 09/12/2020) Performed for Elevated liver enzymes * SARS-COV-2 (COVID-19) IN HOUSE(Performed 08/08/2020) Performed for Exposure to SARS-associated coronavirus * SARS-COV-2 (COVID-19) PANEL (SOIL)(Performed 08/08/2020) Performed for Exposure to SARS-associated coronavirus * PLATELET FUNCTION SCREEN PANEL(Performed 08/07/2020) Performed for Epistaxis * PT PTT PANEL(Performed 08/07/2020) Performed for Epistaxis * CBC W/O DIFFERENTIAL(Performed 08/07/2020) Performed for Epistaxis * CALPROTECTIN FECAL(Performed 07/03/2020) Performed for IBD (inflammatory bowel disease) * CBC W AUTO DIFFERENTIAL(Performed 07/01/2020) Performed for Inflammatory bowel disease * COMPREHENSIVE METABOLIC PANEL(Performed 07/01/2020) Performed for Inflammatory bowel disease * VITAMIN D 25-HYDROXY(Performed 07/01/2020) Performed for Inflammatory bowel disease * ERYTHROCYTE SEDIMENTATION RATE(Performed 07/01/2020) Performed for Inflammatory bowel disease * C-REACTIVE PROTEIN(Performed 07/01/2020) Performed for Inflammatory bowel disease * SARS-COV-2 (COVID-19) IN HOUSE(Performed 04/25/2020) Performed for Exposure to SARS-associated coronavirus * SARS-COV-2 (COVID-19) PANEL (SOIL)(Performed 04/25/2020) Performed for Exposure to SARS-associated coronavirus * SARS-COV-2 (COVID-19) IN HOUSE(Performed 01/21/2020) Performed for Exposure to SARS-associated coronavirus * SARS-COV-2 (COVID-19) PANEL (SOIL)(Performed 01/21/2020) Performed for Exposure to SARS-associated coronavirus * SARS-COV-2 (COVID-19) IN HOUSE(Performed 11/09/2019) Performed for Exposure to SARS-associated coronavirus * XR ANKLE RIGHT 3VW OR MORE(Performed 11/08/2019) Performed for Arthralgia of right ankle * ERYTHROCYTE SEDIMENTATION RATE(Performed 12/08/2018) Performed for Colitis * C-REACTIVE PROTEIN(Performed 12/08/2018) Performed for Colitis * COMPREHENSIVE METABOLIC PANEL(Performed 12/08/2018) Performed for Colitis * CBC W AUTO DIFFERENTIAL(Performed 12/08/2018) Performed for Colitis * CULTURE URINE(Performed 10/27/2018) Performed for Urinary tract infection with hematuria, site unspecified * URINALYSIS - POCT (IP) BEAKER INTERFACE(Performed 10/27/2018) Performed for Dysuria * URINALYSIS - POCT (IP) NOTIFICATION(Performed 10/27/2018) Performed for Dysuria * GIARDIA CRYPTOSPORIDIUM ANTIGEN PANEL(Performed 10/05/2018) Performed for Diarrhea of presumed infectious origin * C DIFFICILE BY PCR(Performed 10/05/2018) Performed for Diarrhea of presumed infectious origin * EGD(Performed 09/05/2018) * ENDOSCOPY, COLON, DIAGNOSTIC(Performed 09/05/2018) Performed for Crohn's disease of small intestine without complication (HCC) * PATHOLOGY TISSUE EXAM (STL)(Performed 09/05/2018) Performed for Crohn's disease with complication, unspecified gastrointestinal tract location (HCC) * ESOPHAGOGASTRODUODENOSCOPY (EGD) BIOPSY(Performed 09/05/2018) * COLONOSCOPY BIOPSY (ANY METHOD)(Performed 09/05/2018) * CBC W AUTO DIFFERENTIAL(Performed 06/09/2018) Performed for Crohn's disease of small intestine without complication (HCC) * ERYTHROCYTE SEDIMENTATION RATE(Performed 06/09/2018) Performed for Crohn's disease of small intestine without complication (HCC) * COMPREHENSIVE METABOLIC PANEL(Performed 06/09/2018) Performed for Crohn's disease of small intestine without complication (HCC) * HGB HCT PANEL(Performed 03/03/2018) Performed for Elevated liver enzymes * US GUIDE NEEDLE PLACEMENT(Performed 03/03/2018) Performed for Elevated liver enzymes * VIRAL CULTURE MISC(Performed 03/03/2018) Performed for Elevated liver enzymes * BIOPSY LIVER (NEEDLE/PERCUTANEOUS)(Performed 03/03/2018) * PATHOLOGY TISSUE EXAM (STL)(Performed 03/03/2018) Performed for Hepatitis * BLOOD TYPE VERIFICATION(Performed 03/03/2018) * PREPARE RBC LEUKOREDUCED UNIT(Performed 03/03/2018) * TYPE + SCREEN PANEL(Performed 03/03/2018) Performed for Elevated liver enzymes * CBC W AUTO DIFFERENTIAL(Performed 03/03/2018) Performed for Elevated liver enzymes * PT PTT PANEL(Performed 03/03/2018) Performed for Elevated liver enzymes * US ABDOMEN LIMITED(Performed 02/03/2018) Performed for Elevated liver enzymes * MRI ENTEROGRAPHY(Performed 01/18/2018) Performed for Elevated liver enzymes * HEPATITIS B SURFACE ANTIGEN W RFLX CONFIRMATION(Performed 12/28/2017) Performed for Abnormal liver enzymes * FERRITIN(Performed 12/28/2017) Performed for Abnormal liver enzymes * IRON + TRANSFERRIN PANEL(Performed 12/28/2017) Performed for Abnormal liver enzymes * HEPATITIS C ANTIBODY(Performed 12/28/2017) Performed for Abnormal liver enzymes * BEVERLY BLOOD SCREEN W/REFLEX TITER(Performed 12/28/2017) Performed for Abnormal liver enzymes * IGA BLOOD(Performed 12/28/2017) Performed for Abnormal liver enzymes * ISIDRO-MOCK VIRUS ANTIBODY PANEL(Performed 12/28/2017) Performed for Abnormal liver enzymes * T4 FREE(Performed 12/28/2017) Performed for Abnormal liver enzymes * TSH(Performed 12/28/2017) Performed for Abnormal liver enzymes * CK BLOOD(Performed 12/28/2017) Performed for Abnormal liver enzymes * SMOOTH MUSCLE ANTIBODY TITER(Performed 12/28/2017) Performed for Abnormal liver enzymes * HEPATITIS B SURFACE ANTIBODY QUANT(Performed 12/28/2017) Performed for Abnormal liver enzymes * SMOOTH MUSCLE ANTIBODY W REFLEX TITER(Performed 12/28/2017) Performed for Abnormal liver enzymes * HEPATITIS B CORE ANTIBODY TOTAL(Performed 12/28/2017) Performed for Abnormal liver enzymes * MICROSOMAL ANTIBODY LIVER/KIDNEY(Performed 12/28/2017) Performed for Abnormal liver enzymes * TISSUE TRANSGLUTAMINASE AB IGA(Performed 12/28/2017) Performed for Abnormal liver enzymes * EYSDM-1-SIOZCMLWQCV BLOOD(Performed 12/28/2017) Performed for Abnormal liver enzymes * ENDOMYSIAL ANTIBODY IGA(Performed 12/28/2017) Performed for Abnormal liver enzymes * CERULOPLASMIN(Performed 12/28/2017) Performed for Abnormal liver enzymes * PATHOLOGY TISSUE EXAM (STL)(Performed 10/11/2017) Performed for Rectal bleeding * COLONOSCOPY BIOPSY (ANY METHOD)(Performed 10/11/2017) * ENDOSCOPY, COLON, DIAGNOSTIC(Performed 10/11/2017) Performed for Blood in stool * ERYTHROCYTE SEDIMENTATION RATE(Performed 09/14/2017) Performed for Blood in stool * COMPREHENSIVE METABOLIC PANEL(Performed 09/14/2017) Performed for Blood in stool * CBC W AUTO DIFFERENTIAL(Performed 09/14/2017) Performed for Blood in stool * CULTURE MRSA(Performed 09/14/2017) Performed for History of MRSA infection * CULTURE MRSA(Performed 06/15/2017) Performed for History of MRSA infection * CULTURE MRSA(Performed 12/17/2016) Performed for MRSA (methicillin resistant staph aureus) culture positive * XR FOOT RIGHT 3VW OR MORE(Performed 06/07/2016) Performed for Right foot pain * XR FOOT RIGHT 3VW OR MORE(Performed 07/18/2015) Performed for Right foot pain * XR ANKLE RIGHT 3VW OR MORE(Performed 10/28/2014) * XR FOOT RIGHT 3VW OR MORE(Performed 10/28/2014) Results * (ABNORMAL) COMPREHENSIVE METABOLIC PANEL (11/15/2023 8:26 AM [facility]) Only the most recent of12 resultswithin the time period is included. [facility] Signature Glucose 96 70 - 125 mg/dL 11/15/2023 9:34 AM [facility] Sodium 140 136 - 145 mmol/L 11/15/2023 9:34 AM [facility] Potassium 4.1 3.4 - 5.1 mmol/L 11/15/2023 9:34 AM [facility] Chloride 107 98 - 107 mmol/L 11/15/2023 9:34 AM [facility] CO2 25 22 - 29 mmol/L 11/15/2023 9:34 AM [facility] Calcium 9.68 8.4 - 10.2 mg/dL 11/15/2023 9:34 AM [facility] Anion Gap 8 6 - 16 mmol/L 11/15/2023 9:34 AM [facility] BUN 12.5 8.4 - 25.7 mg/dL 11/15/2023 9:34 AM [facility] Creatinine 0.80 0.72 - 1.25 mg/dL 11/15/2023 9:34 AM [facility] Alkaline Phosphatase 58 40 - 150 U/L 11/15/2023 9:34 AM [facility] ALT 114(H) <=55 U/L 11/15/2023 9:34 AM [facility] AST 62(H) 5 - 34 U/L 11/15/2023 9:34 AM [facility] Protein Total 7.6 6.4 - 8.3 gm/dL 11/15/2023 9:34 AM [facility] Albumin 4.3 3.4 - 4.8 gm/dL 11/15/2023 9:34 AM [facility] Globulin Total 3.3 2.6 - 4.0 gm/dL 11/15/2023 9:34 AM [facility] Albumin/Globulin Ratio 1.3 0.9 - 1.6 11/15/2023 9:34 AM [facility] Bilirubin Total 0.5 0.2 - 1.2 mg/dL 11/15/2023 9:34 AM CDT [facility] eGFR >90 >90 mL/min/1.7 3m2 11/15/2023 9:34 AM CDT [facility] Comment:The GFR result was c alculated using the updated CKD-EPI Creatinine Equation (2020). Blood BLOOD SPECIMEN / Unknown Lab Venipuncture / Unknown 11/15/2023 8:26 AM CDT 11/15/2023 8:55 AM CDT [facility] - CHEMISTRY MICHEAL GONZALES [facility] Organization Address City/State/ZIP Co de Phone Number [facility] [address] * US ABDOMEN LIMITED (11/11/2023 8:09 AM CDT) Only the most recent of2 resultswithin the time period is included. Anatomical Region Laterality Modality Abdomen Ultrasound 11/11/2023 10:0 4 AM CDT Impressions 11/11/2023 10:05 AM CDT IMPRESSION: No imaging explanation for the reported symptoms. > Interpreting Provider: Bill Gagnon MD on 11/11/2023 10:05 AM Narrative 11/11/2023 10:05 AM CDT PROCEDURE: ??US ABDOMEN LIMITED DATE/TIME OF EXAM: ??11/11/2023 8:09 AM CLINICAL INFORMATION: None relevant/not provided if blank. Indication: R74.8: Abnormal levels of other serum enzymes Additional History: COMPARISON: None. TECHNIQUE: Real-time ultrasound of the upper abdomen with DICOM image capture performed by marketing technologist. FINDINGS: No intrahepatic ductal dilatation or mass lesions. No gallstones. CBD 3.9 mm. GB wall thickness 2.2 mm. Suboptimal visualization of pancreas Normal right kidney RIGHT KIDNEY: 12.5 x 6 x 6 cm. Procedure Note Bill Gagnon MD - 11/11/2023 PROCEDURE: US ABDOMEN LIMITED DATE/TIME OF EXAM: 11/11/2023 8:09 AM CLINICAL INFORMATION: None relevant/not provided if blank. Indication: R74.8: Abnormal levels of other serum enzymes Additional History: COMPARISON: None. TECHNIQUE: Real-time ultrasound of the upper abdomen with DICOM image capture performed by marketing technologist. FINDINGS: No intrahepatic ductal dilatation or mass lesions. No gallstones. CBD 3.9 mm. GB wall thickness 2.2 mm. Suboptimal visualization of pancreas Normal right kidney RIGHT KIDNEY: 12.5 x 6 x 6 cm. IMPRESSION: No imaging explanation for the reported symptoms. > Interpreting Provider: Bill Gagnon MD on 11/11/2023 10:05 AM [facility] US ORDERABLES * VITAMIN D 25-HYDROXY (10/06/2023 3:30 PM CDT) Only the most recent of6 resultswithin the time period is included. Vitamin D, 25 Hydroxy 30.6 30 - 80 ng/mL 10/06/2023 4:24 PM CDT [facility] Blood BLOOD SPECIMEN / Unknown Lab Venipuncture / Unknown 10/06/2023 3:30 PM CDT 10/06/2023 3:41 PM CDT Narrative [facility] - 10/06/2023 4:24 PM CDT Reference Values: The recommendation for 25-Hydroxy Vitamin D clinical decision points are as follows: Deficient ? < 20.0 ng/mL Insufficient ? 20.0-29.9 ng/mL Sufficient ? 30.0-100.0 ng/mL Potential Toxicity ? >100 ng/mL Reference: The Endocrine Society Clinical Practice Guidelines. 2011 If the 25-Hydroxy Vitamin D results are inconsistent with clinical evidence, it is recommended that follow-up testing using a method such as LC-MS/MS be performed to confirm the result. Lamar Martinez DO LAB - CHEMISTRY MICHEAL Quintana Organization Address City/State/ZIP Co de Phone Number [facility] [address] * BILIRUBIN DIRECT (10/06/2023 3:30 PM CDT) Only the most recent of3 resultswithin the time period is included. Bilirubin Direct 0.24 <=0.5 mg/dL 10/06/2023 4:01 PM CDT [facility] Blood BLOOD SPECIMEN / Unknown Lab Venipuncture / Unknown 10/06/2023 3:30 PM CDT 10/06/2023 3:41 PM CDT Lamar Martinez DO LAB - CHEMISTRY XAVIE JANET [facility] [address] * CARDIAC RHYTHM STRIP ORDER (06/24/2023 2:48 PM CDT) Only the most recent of3 resultswithin the time period is included. Narrative 06/24/2023 2:48 PM CDT Ordered by an unspecified provider. Scanned Document CARDIAC SERVICES ORD ERABLES * GROSS + MICRO EXAM (ILL) (06/23/2023 10:03 AM CDT) Only the most recent of3 resultswithin the time period is included. Case Report Surgical Pathology Report ? Case: [id number] ? Authorizing Provider: ??Patsy Terry MD ?Collected: ? 06/23/2023 10:03 AM ? Ordering Location: ? [facility]' ?Received: ?06/23/2023 02:21 PM ? [facility] ? Pathologist: ? Vidal Neil MD ? Specimen: ?Polyp Rectal, Rectal Polyp ? 06/24/2023 8:49 AM [facility] Final Diagnosis Rectal polyp, excision: Rectal mucosa with prolapse type changes. 06/24/2023 8:49 AM [facility] Microscopic Description and Comment Microscopic examination is performed and substantiates the above diagnosis. 06/24/2023 8:49 AM [facility] Gross Description The requisition and specimen(s) are identified with the patient's name (Anders Morales), MRN, and . Received in formalin, specimen rectal polyp , is a pink-weiner polypoid tissue (presumed resection margin inked black), 1.6 x 1.1 x 0.8 cm. The specimen is submitted entirely in cassettes A1-A2 after sectioning. AW 06/24/2023 8:49 AM [facility] Pathologist Location at [facility] 06/24/2023 8:49 AM [facility] Disclaimer The performance characteristics of all immunohistochemical and indirect immunofluorescence stains (if any) cited in this report were determined by the Histopathology Laboratory of [facility]. Some of these tests were developed by our own laboratory and have not been cleared or approved by the US Food and Drug Administration. The FDA does not require this test to go through premarket FDA review. These tests are used for clinical purposes. They should not be regarded as investigational or for research. This laboratory is certified under the Clinical Laboratory Improvement Amendments (CLIA) as qualified to perform high complexity clinical laboratory testing. H&E slides and special stains prepared at [facility], [place]. [address] (CLIA# [id number]) unless otherwise specified. This case was interpreted by the [facility] Department of Pathology. When applicable, select reference laboratory testing is performed at the [facility], [address] [place] [address]. 06/24/2023 8:49 AM CDT [facility] Embedded Images 06/24/2023 8:49 AM CDT [facility] Pathology/Cytolo gy RECTAL POLYP / Unknown 06/23/2023 10:03 AM CDT 06/23/2023 2:21 PM CDT Comment:Pre-op diagnosis: Colorectal polyps [K63.5, K62.1] Patsy Terry MD LAB - PATHOLOGY/CYTO LOGY ORDERABLES Performing Organization Address City/[facility]/ZIP Co de Phone Number [facility] [address] * TSH REFLEX FREE T4 (12/20/2022 10:33 AM CDT) TSH 1.9112 0.35 - 4.94 uIU/mL 12/20/2022 1:17 PM CDT [facility] Comment:TSH Normal, Reflex F ree T4 Not Performed. Blood BLOOD SPECIMEN / Unknown Venipuncture / Unknown 12/20/2022 10:33 AM CDT 12/20/2022 10:33 AM CDT Raya FERNANDO LAB - CHEMISTRY MICHEAL GONZALES [facility] [address] * HEMOGLOBIN A1C (12/20/2022 10:33 AM CDT) Only the most recent of5 resultswithin the time period is included. Hemoglobin A1c 5.6 4.2 - 5.6 % 12/20/2022 12:40 PM CDT [facility] Estimated Average Glucose 114 mg/dL 12/20/2022 12:40 PM CDT [facility] Blood BLOOD SPECIMEN WITH EDTA / Unknown Venipuncture / Unknown 12/20/2022 10:33 AM CDT 12/20/2022 10:33 AM CDT Narrative [facility] - 12/20/2022 12:40 PM CDT HbA1c Interpretation: Normal: < 5.7% Pre-diabetes: 5.7-6.4% Diabetes: Equal to or greater than 6.5% Test results diagnostic of diabetes should be repeated for confirmation. Treatment target values recommended by ADA and other clinical organizations should be used to evaluate metabolic control in patients. This test should not replace glucose testing for patients with Type 1 diabetes, pediatric patients, or women. ??Falsely low HbA1c results may be observed in patients with clinical conditions that shorten erythrocyte life span or decrease mean erythrocyte age such as the presence of unstable hemoglobin variants, elevated hemoglobin F level or other causes of hemolytic anemia. ??HbA1c may not accurately reflect glycemic control when clinical conditions that affect erythrocyte survival are present. ??Severe Iron deficiency anemia may yield falsely high results. ??Hemoglobin A1c assay should not be used to diagnose or monitor diabetes in patients with malignancy, recent blood transfusion, chronic kidney or liver disease. ?? This method may yield falsely low results when hemoglobin (HbF) exceeds 5% in the specimen. The Rios Alinity assay for the measurement of HbA1c is a National Glycohemoglobin Standardization Program (NGSP) certified method. Raya FERNANDO LAB - CHEMISTRY MICHEAL GONZALES [facility] Organization Address City/State/[facility] Co de Phone Number [facility] [address] * CBC WITH DIFFERENTIAL (12/20/2022 10:33 AM CDT) Only the most recent of8 resultswithin the time period is included. WBC 7.8 4.0 - 10.0 x10E9/L 12/20/2022 12:36 PM CDT [facility] RBC 5.16 4.40 - 6.10 x10E12/L 12/20/2022 12:36 PM CDT [facility] Hemoglobin 15.1 13.7 - 17.5 gm/dL 12/20/2022 12:36 PM CDT [facility] Hematocrit 46.4 40.1 - 51.0 % 12/20/2022 12:36 PM [facility] MCV 89.9 78.0 - 100.0 fl 12/20/2022 12:36 PM [facility] MCH 29.3 25.6 - 34.0 pg 12/20/2022 12:36 PM [facility] MCHC 32.5 32.3 - 36.5 gm/dL 12/20/2022 12:36 PM [facility] RDW 13.6 11.6 - 14.4 % 12/20/2022 12:36 PM [facility] MPV 10.4 9.4 - 12.4 fl 12/20/2022 12:36 PM [facility] Platelet Count 254 163 - 369 x10E9/L 12/20/2022 12:36 PM [facility] Neutrophils % 44.1 40.0 - 75.0 % 12/20/2022 12:36 PM [facility] Lymphocytes % 44.5 19.3 - 53.1 % 12/20/2022 12:36 PM [facility] Monocytes % 6.6 4.7 - 12.5 % 12/20/2022 12:36 PM [facility] Eosinophils % 3.9 0.7 - 7.0 % 12/20/2022 12:36 PM [facility] Basophils % 0.5 0.1 - 1.2 % 12/20/2022 12:36 PM [facility] Immature Granulocytes 0.4 0 - 0.5 % 12/20/2022 12:36 PM [facility] Neutrophil Absolute 3.43 1.56 - 6.13 x10E9/L 12/20/2022 12:36 PM [facility] Lymphocytes Absolute 3.45 1.18 - 3.74 x10E9/L 12/20/2022 12:36 PM [facility] Monocytes Absolute 0.51 0.24 - 0.86 x10E9/L 12/20/2022 12:36 PM [facility] Eosinophils Absolute 0.30 0.04 - 0.54 x10E9/L 12/20/2022 12:36 PM [facility] Basophils Absolute 0.04 0.01 - 0.08 x10E9/L 12/20/2022 12:36 PM [facility] Immature Granulocytes Absolute 0.03 0 - 0.03 x10E9/L 12/20/2022 12:36 PM CDT [facility] nRBC Auto 0 <=0 /100 WBC 12/20/2022 12:36 PM CDT [facility] nRBC Absolute 0.00 <=0 x10E9/L 12/20/2022 12:36 PM CDT [facility] Blood BLOOD SPECIMEN / Unknown Venipuncture / Unknown 12/20/2022 10:33 AM CDT 12/20/2022 10:33 AM CDT Raya FERNANDO LAB - HEMATOLOGY ORD ERABLES [facility] [address] * XR THORACIC SPINE 3VW (12/13/2022 3:35 PM CDT) Anatomical Region Laterality Modality Spine Computed Radiogr aphy 12/13/2022 3:44 PM CDT Impressions 12/13/2022 3:44 PM CDT IMPRESSION: Unremarkable thoracic spine x-ray. > Interpreting Provider: Bill Gagnon MD on 12/13/2022 3:44 PM Narrative 12/13/2022 3:44 PM CDT PROCEDURE: XR THORACIC SPINE 3VW ??12/13/2022 3:44 PM HISTORY: M54.6: Pain in thoracic spine. FINDINGS AND IMPRESSION: COMPARISON: No comparison. FINDINGS: No acute fracture or dislocation. Paravertebral soft tissue structures and pedicles are unremarkable. Vertebral body heights and intervertebral disc spaces are uniform and unremarkable. There is no evidence for spondylolysis or spondylolisthesis. No lytic or blastic process is present. Procedure Note Bill Gagnon MD - 12/13/2022 PROCEDURE: XR THORACIC SPINE 3VW 12/13/2022 3:44 PM HISTORY: M54.6: Pain in thoracic spine. FINDINGS AND IMPRESSION: COMPARISON: No comparison. FINDINGS: No acute fracture or dislocation. Paravertebral soft tissue structuresand pedicles are unremarkable. Vertebral body heights and intervertebraldisc spaces are uniform and unremarkable. There is no evidence forspondylolysis or spondylolisthesis. No lytic or blastic process is present. IMPRESSION: Unremarkable thoracic spine x-ray. > Interpreting Provider: Bill Gagnon MD on 12/13/2022 3:44 PM Karen Flores RANGE MECHANIC-BELT MACHINE OPERATOR DIAGNOSTIC IMAG ING ORDERABLES * XR LUMBAR SPINE 4VW OR MORE (12/13/2022 3:35 PM CDT) Anatomical Region Laterality Modality Spine Computed Radiogr aphy 12/13/2022 3:44 PM CDT Impressions 12/14/2022 4:47 AM CDT IMPRESSION: Normal lumbar spine. Edited by Kim Luz on 12/13/2022 3:47 PM > Interpreting Provider: Bill Gagnon MD on 12/14/2022 4:47 AM Narrative 12/14/2022 4:47 AM CDT PROCEDURE: ??XR LUMBAR SPINE 4VW OR MORE DATE/TIME OF EXAM: ??12/13/2022 3:35 PM INDICATION: M54.50: Low back pain, unspecified. Additional History: COMPARISON: None. FINDINGS: Multiple views of the lumbar spine show a normal lordotic curvature. The heights of the vertebral bodies and intervertebral disc spaces are normal. The spinous and transverse processes are intact, and the pedicles as well as the interpedicular spaces are normal. The posterior facet joints appear unremarkable. The pars interarticularis appears intact. Procedure Note Bill Gagnon MD - 12/14/2022 PROCEDURE: XR LUMBAR SPINE 4VW OR MORE DATE/TIME OF EXAM: 12/13/2022 3:35 PM INDICATION: M54.50: Low back pain, unspecified. Additional History: COMPARISON: None. FINDINGS: Multiple views of the lumbar spine show a normal lordotic curvature. The heights of the vertebral bodies and intervertebral disc spaces are normal. The spinous and transverse processes are intact, and the pedicles aswell as the interpedicular spaces are normal. The posterior facet joints appear unremarkable. The pars interarticularis appears intact. IMPRESSION: Normal lumbar spine. Edited by Kim Luz on 12/13/2022 3:47 PM > Interpreting Provider: Bill Gagnon MD on 12/14/2022 4:47 AM Karen Bateman Mark RANGE MECHANIC-BELT MACHINE OPERATOR DIAGNOSTIC IMAG ING ORDERABLES * PT-INR [facility] (05/21/2022 11:42 AM CDT) Only the most recent of2 resultswithin the time period is included. PT 13.3 12.1 - 14.8 Seconds 05/21/2022 12:26 PM CDT [facility]AT[facility] INR 1.0 See Comment 05/21/2022 12:26 PM CDT [facility] Comment:The suggested therap eutic range for standard coumadin (warfarin) therapy is an INR of 2.0-3.0. For high-risk patients (Mechanical Mitral Valve Prosthesis, etc.), the suggested prophylactic therapeutic range is an INR of 2.5-3.5. Blood BLOOD SPECIMEN / Unknown Lab Venipuncture / Unknown 05/21/2022 11:42 AM CDT 05/21/2022 11:58 AM CDT Avis Perea APRN-BELT MACHINE OPERATOR LAB - COA GULATION ORDERABLES [address] [address], [facility] [phone] * (ABNORMAL) GGT (05/21/2022 11:42 AM CDT) Only the most recent of3 resultswithin the time period is included. GGT 94(H) 9 - 64 Units/L 05/21/2022 12:38 PM CDT [facility] Blood BLOOD SPECIMEN / Unknown Lab Venipuncture / Unknown 05/21/2022 11:42 AM CDT 05/21/2022 11:58 AM CDT Cayden Bustos MD LAB - CHEMISTRY MICHEAL GONZALES [address] [address], [place] [phone] * (ABNORMAL) LIPID PROFILE (05/21/2022 11:42 AM CDT) Only the most recent of4 resultswithin the time period is included. Pathologist [facility] Cholesterol Total 190 <200 mg/dL 05/21/2022 12:38 PM [facility] HDL 48 >40 mg/dL 05/21/2022 12:38 PM [facility] Comment: ATP III Classification of HDL Cholesterol: ? <40 mg/dL: ??Considered a major risk factor. ? >60 mg/dL: ??Considered a negative risk factor. ? LDL Calculated 123(H) <100 mg/dL 05/21/2022 12:38 PM [facility] Comment: ATP III Classification of LDL Cholesterol: ?<100 mg/dL: ??Optimal ? 100 - 129 mg/dL: ??Near Optimal/Above Optimal ? 130 - 159 mg/dL: ??Borderline High ? 160 - 189 mg/dL: ??High ?>190 mg/dL: ??Very High ? Triglycerides 97 <150 mg/dL 05/21/2022 12:38 PM [facility] Comment: ATP III Classification of Triglycerides: ?<150 mg/dL: ??Normal ? 150 - 199 mg/dL: ??Borderline High ? 200 - 400 mg/dL: ??High ?>500 mg/dL: ??Very High Blood BLOOD SPECIMEN / Unknown Lab Venipuncture / Unknown 05/21/2022 11:42 AM CDT 05/21/2022 11:58 AM CDT Avis Perea RANGE MECHANIC-BELT MACHINE OPERATOR LAB - EMILY HUSSEIN ORDERABLES Performing Organization Address [facility]/State/ZIP Co de Phone Number [facility] [address] [place] [address], [place] [phone] * SPLIT NIGHT STUDY (12/08/2021) Pathologist [facility] Linked Results See Linked Results [facility] 12/08/2021 Betina Espinoza MD [facility]EP CENTER ORDERABLES [facility] * SPLIT NIGHT STUDY (09/20/2021) Linked Results See Linked Results [facility] 09/20/2021 Betina Espinoza MD [facility] ORDERABLES Performing Organization Address City/[facility] Co de Phone Number [facility] [place] * (ABNORMAL) IRON + TRANSFERRIN PANEL (08/21/2021 10:37 AM CDT) Only the most recent of2 resultswithin the time period is included. Iron 57 50 - 175 ug/dL 08/21/2021 11:42 AM CDT [facility] Transferrin 316 174 - 382 mg/dL 08/21/2021 11:42 AM CDT [facility] Transferrin Saturation % 14(L) 16 - 50 % 08/21/2021 11:42 AM CDT [facility] TIBC Calculated 395 240 - 450 ug/dL 08/21/2021 11:42 AM CDT [facility] Blood BLOOD SPECIMEN / Unknown Lab Venipuncture / Unknown 08/21/2021 10:37 AM CDT 08/21/2021 10:58 AM CDT Betina Espinoza MD LAB - PROTECTIVE SIGNAL REPAIRER RY ORDERABLES [facility] [address] [place] [address], [place] [phone] * FERRITIN (08/21/2021 10:37 AM CDT) Only the most recent of2 resultswithin the time period is included. Ferritin 133 22 - 275 ng/mL 08/21/2021 12:02 PM CDT [facility] Blood BLOOD SPECIMEN / Unknown Lab Venipuncture / Unknown 08/21/2021 10:37 AM CDT 08/21/2021 10:58 AM CDT Betina Espinoza MD LAB - PROTECTIVE SIGNAL REPAIRER RY ORDERABLES Performing Organization Address City/[facility]/ZIP Co de Phone Number [facility]ATORY [place] [id number] [place] [address], [facility] [phone] * URINE MICROSCOPIC ONLY REFLEX TO CULTURE (05/10/2021 11:58 AM CDT) Reflex Status Culture not indicated 05/10/2021 12:13 PM CDT [facility] RBC UA 0-2 None Seen, 0-2, 3-5 # /hpf 05/10/2021 12:13 PM CDT [facility] WBC UA 0-5 None Seen, 0-5 # /hpf 05/10/2021 12:13 PM CDT [facility] Bacteria UA None Seen None Seen 05/10/2021 12:13 PM CDT [facility] Squamous Epithelial Cells 0-2 None Seen, 0-2, 3-5 /hpf 05/10/2021 12:13 PM CDT [facility] Mucus UA 1+ /LPF 05/10/2021 12:13 PM CDT [facility] Urine URINE SPECIMEN OBTAINED BY CLEAN CATCH PROCEDURE / Unknown Collection / Unknown 05/10/2021 11:58 AM CDT 05/10/2021 11:58 AM CDT Narrative [facility] - 05/10/2021 12:13 PM CDT Xuan Flores RANGE MECHANIC-BELT MACHINE OPERATOR LAB - URINALYSI S ORDERABLES [facility] [address] [place] [address], [facility] * (ABNORMAL) URINALYSIS REFLEX MICROSCOPIC REFLEX CULTURE (05/10/2021 11:58 AM CDT) Color UA Tootie(A) Straw, Yellow, Dark Yellow 05/10/2021 12:09 PM CDT [facility] Clarity UA Clear Clear 05/10/2021 12:09 PM CDT [facility] Glucose UA Negative Negative 05/10/2021 12:09 PM CDT [facility] Bilirubin UA Negative Negative 05/10/2021 12:09 PM CDT [facility] Ketone UA Negative Negative 05/10/2021 12:09 PM CDT [facility] Specific [place] UA 1.043(H) 1.005 - 1.030 05/10/2021 12:09 PM CDT [facility] Blood UA Negative Negative 05/10/2021 12:09 PM CDT [facility] pH UA 5.0 5.0 - 8.0 pH 05/10/2021 12:09 PM CDT [facility] Protein UA 1+(A) Negative 05/10/2021 12:09 PM CDT [facility] Urobilinogen UA 2.0(A) Negative mg/dL 05/10/2021 12:09 PM CDT [facility] Nitrite UA Negative Negative 05/10/2021 12:09 PM CDT [facility] Leukocyte UA Negative Negative 05/10/2021 12:09 PM CDT [facility] Urine Microscopy Urine microscopy to follow 05/10/2021 12:09 PM CDT [facility] Urine URINE SPECIMEN OBTAINED BY CLEAN CATCH PROCEDURE / Unknown Collection / Unknown 05/10/2021 11:58 AM CDT 05/10/2021 11:58 AM CDT Narrative [facility] - 05/10/2021 12:09 PM CDT Xuan Tiesha Flores RANGE MECHANIC-BELT MACHINE OPERATOR LAB - URINALYSI S ORDERABLES Performing Organization Address [facility]/State/[facility] de Phone Number [facility] [address] * CT ABDOMEN AND PELVIS WITH IV CONTRAST - Acute Abdomen (05/10/2021 11:36 AM CDT) Anatomical Region Laterality Modality Abdomen, Pelvis Computed Tomogra phy 05/10/2021 12:0 1 PM CDT Impressions 05/10/2021 1:04 PM CDT IMPRESSION: Cannot exclude early appendicitis along the proximal half of the appendix which shows distention and early periadventitial stranding. Reactive ileocolic adenopathy also present in that vicinity sometimes reflective of mesenteric adenitis. Correlate clinically. Right basilar linear consolidation or atelectasis. > Interpreting Provider: Ricci Stone MD on 05/10/2021 1:04 PM Narrative 05/10/2021 1:04 PM CDT PROCEDURE: ??CT ABDOMEN PELVIS W CONTRAST, DATE/TIME OF EXAM: ??05/10/2021 11:37 AM, LOCATION ??[facility] INDICATION: R10.31: Right lower quadrant pain R50.9: Fever, unspecified R11.2: Nausea with vomiting, unspecified ADDITIONAL CLINICAL INFORMATION: Ordering Provider Reason For Exam: Technologist Note: Additional: COMPARISON: None. TECHNIQUE: CT of the abdomen and pelvis was performed following ??intravenous contrast utilizing standard protocol. Coronal and sagittal reformatting was performed. DOSE: CTDI: See PACS report mGy, DLP: mGy-cm The reported CTDIvol (mGy) and DLP (mGy-cm) values are generated from scan acquisition factors based on 32 cm (body) or 16 cm (head) phantoms and may underestimate or overestimate the actual patient dose based on patient size and other factors. CT dose reduction technique was used, including Automated Exposure Control. CONTRAST: ?? IOPAMIDOL 61 % IV SOLN:92 mL FINDINGS: Lung bases: Right basilar consolidation pleural-based and linear which may reflect atelectatic changes. Gastrointestinal: Normal. Hepatobiliary system: Normal. Gallbladder: Normal. Spleen: Normal. Pancreas: Normal. Kidneys/Bladder: Normal. Adrenal Glands: Normal. Pelvic Organs: Normal. Peritoneal cavity: Normal. Vascular: Normal. Bones: Normal. Appendix: 9 mm. Mild periappendiceal stranding. Reactive adenopathy in the right lower quadrant ileocolic chain. The findings may reflect early appendicitis. This would involve the base of the appendix. The more distal half of the appendix is normal caliber. Correlate to white count and serial examinations. Procedure Note Ricci Stone MD - 05/10/2021 PROCEDURE: CT ABDOMEN PELVIS W CONTRAST, DATE/TIME OF EXAM: 05/10/2021 11:37 AM, LOCATION [facility] INDICATION: R10.31: Right lower quadrant pain R50.9: Fever, unspecified R11.2: Nausea with vomiting, unspecified ADDITIONAL CLINICAL INFORMATION: Ordering Provider Reason For Exam: Technologist Note: Additional: COMPARISON: None. TECHNIQUE: CT of the abdomen and pelvis was performed following intravenouscontrast utilizing standard protocol. Coronal and sagittal reformatting was performed. DOSE: CTDI: See PACS report mGy, DLP: mGy-cm The reported CTDIvol (mGy) and DLP (mGy-cm) values are generated fromscan acquisition factors based on 32 cm (body) or 16 cm (head) phantoms andmay underestimate or overestimate the actual patient dose based on patientsize and other factors. CT dose reduction technique was used, including Automated Exposure Control. CONTRAST: IOPAMIDOL 61 % IV SOLN:92 mL FINDINGS: Lung bases: Right basilar consolidation pleural-based and linear whichmay reflect atelectatic changes. Gastrointestinal: Normal. Hepatobiliary system: Normal. Gallbladder: Normal. Spleen: Normal. Pancreas: Normal. Kidneys/Bladder: Normal. Adrenal Glands: Normal. Pelvic Organs: Normal. Peritoneal cavity: Normal. Vascular: Normal. Bones: Normal. Appendix: 9 mm. Mild periappendiceal stranding. Reactive adenopathy in the right lower quadrant ileocolic chain. The findings may reflect early appendicitis. This would involve the baseof the appendix. The more distal half of the appendix is normal caliber. Correlate to white count and serial examinations. IMPRESSION: Cannot exclude early appendicitis along the proximal half of theappendix which shows distention and early periadventitial stranding. Reactive ileocolic adenopathy also present in that vicinity sometimes reflective of mesenteric adenitis. Correlate clinically. Right basilar linear consolidation or atelectasis. > Interpreting Provider: Ricci Stone MD on 05/10/2021 1:04 PM Xuan Flores RANGE MECHANIC-BELT MACHINE OPERATOR CT ORDERABLES * (ABNORMAL) SARS-COV-2 (COVID-19)+INFLU A+B PCR RAPID (05/10/2021 11:20 AM CDT) COVID-19 PCR Not detected Not detected, Invalid 05/10/2021 12:14 PM CDT [facility] Influenza A PCR Detected(A) Not detected 05/10/2021 12:14 PM CDT [facility] Influenza B PCR Not detected Not detected 05/10/2021 12:14 PM CDT [facility] Microbiology SPECIMEN FROM NASOPHARYNGEAL STRUCTURE / Unknown Collection / Unknown 05/10/2021 11:20 AM CDT 05/10/2021 11:29 AM CDT Narrative [facility] - 05/10/2021 12:14 PM CDT The Cepheid Xpert Xpress SARS-COV-2 has been authorized by the Food and Drug administration (FDA) under an Emergency Use Authorization (EUA). This test has been validated in accordance with the FDA's guidance document Policy for Diagnostic Testing in Laboratories Certified to perform High Complexity Testing under CLIA prior to Emergency Use Authorization for Coronavirus Disease-2019 during the Public Health Emergency issued on April 28, 2019. FDA independent review of this validation is pending. This test is only authorized for the duration of time the declaration that circumstances exist justifying the authorization of emergency use of in vitro diagnostic tests for detection of SARS-COV-2 virus and/or diagnosis of COVID-19 infection under 564(b)(1)of the Act, 21 U.S.C. 360bbb-3 (b) (1), unless the authorization is terminated or revoked sooner. Xuan Flores APRN-[facility] LAB - MICROBIOL OGY ORDERABLES [facility] [address] [place] [address] * LIPASE BLOOD (05/10/2021 11:20 AM CDT) Lipase 71 8 - 78 U/L 05/10/2021 11:58 AM CDT [facility] Blood BLOOD SPECIMEN / Unknown Venipuncture / Unknown 05/10/2021 11:20 AM CDT 05/10/2021 11:23 AM CDT Xuan Flores [facility] LAB - CHEMISTRY ORDERABLES [facility] [address] * GLUCOSE (04/20/2021 9:02 AM SUPPLIER RELATIONSHIP DIRECTOR) Glucose 89 70 - 125 mg/dL 04/20/2021 9:56 AM SUPPLIER RELATIONSHIP DIRECTOR [facility] Blood BLOOD SPECIMEN / Unknown Lab Venipuncture / Unknown 04/20/2021 9:02 AM SUPPLIER RELATIONSHIP DIRECTOR 04/20/2021 9:22 AM SUPPLIER RELATIONSHIP DIRECTOR Avis Perea RANGE MECHANIC-BELT MACHINE OPERATOR LAB - EMILY HUSSEIN ORDERABLES Performing Organization Address City/[facility] Co de Phone Number [facility] [address] * (ABNORMAL) HEPATIC FUNCTION PANEL (04/20/2021 9:02 AM [facility]) Only the most recent of2 resultswithin the time period is included. Alkaline Phosphatase 117 40 - 150 U/L 04/20/2021 10:28 AM [facility] ALT 151(H) 5 - 55 U/L 04/20/2021 10:28 AM [facility] AST 72(H) 5 - 34 U/L 04/20/2021 10:28 AM [facility] Protein Total 7.5 6.4 - 8.3 gm/dL 04/20/2021 10:28 AM [facility] Albumin 4.3 3.5 - 5.0 gm/dL 04/20/2021 10:28 AM [facility] Bilirubin Total 0.4 0.2 - 1.2 mg/dL 04/20/2021 10:28 AM [facility] Bilirubin Direct 0.15 0 - 0.5 mg/dL 04/20/2021 10:28 AM [facility] Albumin/Globulin Ratio 1.3 0.9 - 1.6 04/20/2021 10:28 AM [facility] Globulin Total 3.2 2.6 - 4.0 gm/dL 04/20/2021 10:28 AM [facility] Bilirubin Indirect 0.3 0.2 - 0.9 mg/dL 04/20/2021 10:28 AM [facility] Blood BLOOD SPECIMEN / Unknown Lab Venipuncture / Unknown 04/20/2021 9:02 AM SUPPLIER RELATIONSHIP DIRECTOR 04/20/2021 9:20 AM SUPPLIER RELATIONSHIP DIRECTOR Avis Perea RANGE MECHANIC-BELT MACHINE OPERATOR LAB - EMILY HUSSEIN ORDERABLES Performing Organization Address City/[facility]/ZIP Co de Phone Number [facility] [address] * CBC W/O DIFFERENTIAL (12/05/2020 10:47 AM CDT) Only the most recent of2 resultswithin the time period is included. [facility] WBC 8.0 3.8 - 9.8 x10E9/L 12/05/2020 11:19 AM CDT [facility] RBC 4.87 3.93 - 5.29 x10E12/L 12/05/2020 11:19 AM CDT [facility] Hemoglobin 13.7 10.8 - 14.5 gm/dL 12/05/2020 11:19 AM CDT [facility] Hematocrit 42.6 33.4 - 43.5 % 12/05/2020 11:19 AM CDT [facility] MCV 87.5 76.7 - 90.6 fl 12/05/2020 11:19 AM CDT [facility] MCH 28.1 24.8 - 30.2 pg 12/05/2020 11:19 AM CDT [facility] MCHC 32.2 31.5 - 34.8 gm/dL 12/05/2020 11:19 AM CDT [facility] RDW 14.5 12.3 - 14.6 % 12/05/2020 11:19 AM CDT [facility] MPV 10.4 8.6 - 11.8 fl 12/05/2020 11:19 AM CDT [facility] Platelet Count 334 175 - 345 x10E9/L 12/05/2020 11:19 AM CDT [facility] Blood BLOOD SPECIMEN / Unknown Lab Venipuncture / Unknown 12/05/2020 10:47 AM CDT 12/05/2020 11:15 AM CDT Sary Franklin MD LAB - HEMATOLOGY ORDERABLES [facility] [address] * XR KNEE LEFT 4VW OR MORE (11/07/2020 10:59 AM CDT) Only the most recent of2 resultswithin the time period is included. Anatomical Region Laterality Modality Lower Extremity Radiographic Tran ging 11/07/2020 11:0 8 AM CDT Impressions 11/07/2020 11:08 AM CDT Normal leftknee. *Reading Radiologist: Ricci Stone on 11/07/2020 at 11:08 AM Narrative 11/07/2020 11:08 AM CDT PROCEDURE: XR KNEE LEFT 4VW OR MORE ??11/07/2020 10:59 AM HISTORY: Pain in left knee. FINDINGS AND IMPRESSION: COMPARISON: No comparison. FINDINGS: No joint effusion. Joint spaces are well-preserved. No soft tissue injury. No fracture is identified and the alignment is anatomic. Procedure Note Ricci Stone MD - 11/07/2020 PROCEDURE: XR KNEE LEFT 4VW OR MORE 11/07/2020 10:59 AM HISTORY: Pain in left knee. FINDINGS AND IMPRESSION: COMPARISON: No comparison. FINDINGS: No joint effusion. Joint spaces are well-preserved. No soft tissue injury. No fracture is identified and the alignment is anatomic. IMPRESSION Normal leftknee. *Reading Radiologist: Ricci Stone on 11/07/2020 at 11:08 AM [facility] RDER[facility] * (ABNORMAL) CULTURE URINE (10/13/2020 10:00 AM CDT) Only the most recent of2 resultswithin the time period is included. Culture Urine >100,000 CFU/mL Klebsiella pneumoniae ssp pneumoniae(A) MARÍA 10/15/2020 8:37 AM CDT [facility] Urine URINE SPECIMEN OBTAINED BY CLEAN CATCH PROCEDURE / Unknown Collection / Unknown 10/13/2020 10:00 AM CDT 10/13/2020 10:00 AM CDT Narrative Organism Antibiotic Method Susceptibility Klebsiella pneumoniae ssp pneumoniae Amikacin MARÍA <=2.0 ug/mL: Susceptible Klebsiella pneumoniae ssp pneumoniae Ampicillin MARÍA 16.0 ug/mL: Resistant Klebsiella pneumoniae ssp pneumoniae Cefazolin MARÍA <=4.0 ug/mL: Susceptible Klebsiella pneumoniae ssp pneumoniae Cefepime MARÍA <=1.0 ug/mL: Susceptible Klebsiella pneumoniae ssp pneumoniae Cefoxitin MARÍA <=4.0 ug/mL: Susceptible Klebsiella pneumoniae ssp pneumoniae Ceftriaxone MARÍA <=1.0 ug/mL: Susceptible Klebsiella pneumoniae ssp pneumoniae Ciprofloxacin MARÍA <=0.25 ug/mL: Susceptible Klebsiella pneumoniae ssp pneumoniae Gentamicin MARÍA <=1.0 ug/mL: Susceptible Klebsiella pneumoniae ssp pneumoniae Levofloxacin MARÍA <=0.12 ug/mL: Susceptible Klebsiella pneumoniae ssp pneumoniae Meropenem MARÍA <=0.25 ug/mL: Susceptible Klebsiella pneumoniae ssp pneumoniae Nitrofurantoin MARÍA 64.0 ug/mL: Intermediate Klebsiella pneumoniae ssp pneumoniae Tobramycin MARÍA <=1.0 ug/mL: Susceptible Klebsiella pneumoniae ssp pneumoniae Trimethoprim-sulfamethoxazo le MARÍA <=20.0 ug/mL: Susceptible Ashley Cordova RANGE MECHANIC-BELT MACHINE OPERATOR LAB - MICR OBIOLOGY ORDERABLES [facility] [address] * (ABNORMAL) URINALYSIS - POCT (IP) BEAKER INTERFACE (10/13/2020 9:47 AM CDT) Only the most recent of2 resultswithin the time period is included. Color UA POCT Dark Yellow(A) Straw, Yellow, Light Yellow 10/13/2020 9:47 AM CDT [facility] Clarity UA POCT Cloudy(A) Clear 9:47 AM CDT [facility] Specific [place] UA POCT 1.025 1.005 - 1.030 10/13/2020 9:47 AM CDT [facility] pH UA POCT 5.0 5.0 - 8.5 pH 10/13/2020 9:47 AM CDT [facility] Protein UA POCT Negative Negative 9:47 AM CDT [facility] Blood UA POCT 2+(A) Negative, Trace-lysed , Trace-intac t 10/13/2020 9:47 AM CDT [facility] Leukocyte UA POCT 2+(A) Negative 10/13/2020 9:47 AM CDT [facility] Nitrite UA POCT Negative Negative 9:47 AM CDT [facility] Glucose UA POCT Negative Negative 9:47 AM CDT [facility] Ketone UA POCT Negative Negative 10/13/2020 9:47 AM CDT [facility] Bilirubin UA POCT Negative Negative 10/13/2020 9:47 AM CDT [facility] Urobilinogen UA POCT 0.2 0.2 - 1.0 EU/dL 10/13/2020 9:47 AM CDT [facility] Urine URINE / Unknown 10/13/2020 9 :47 AM CDT 10/13/2020 9:47 AM CDT Varghese Parham PA-C LAB - POINT OF CARE ORDERABLES Performing Organization Address [facility] de Phone Number [facility] [address] * URINALYSIS - POCT (IP) NOTIFICATION (10/13/2020 9:40 AM CDT) Only the most recent of2 resultswithin the time period is included. Comment Notification Label Only - See Separate Report 10/13/2020 11:00 AM CDT [facility] Urine URINE / Unknown 10/13/2020 9 :40 AM CDT 10/13/2020 9:40 AM CDT Varghese Parham PA-C LAB - URINALYSIS ORD ERABLES Performing Organization Address [facility] Co de Phone Number [facility] [address] * IR BIOPSY TRANSCATHETER (10/06/2020 11:12 AM CDT) Anatomical Region Laterality Modality Abdomen, Lung, Chest X-Ray Angio graphy 10/06/2020 6:11 PM CDT Narrative 10/06/2020 6:21 PM CDT History: 15 year old male with elevated LFTs here for image-guided random liver biopsy to help evaluate for autoimmune hepatitis presence. Operators: 1. ??Dr. Goyo Forrester, Attending Physician Anesthesia: 1. ??Local anesthesia - 4 ml of 1% lidocaine 2. ??General ETT anesthesia Procedure: 1. ??Ultrasound-guided access of the right internal jugular vein. 2. ??Middle hepatic venogram. 3. ??Transcatheter biopsy of the liver under fluoroscopic guidance. Fluoroscopic time: 1.6 minutes ?Contrast: 10 mL of Isovue-300 Procedure in detail: The procedure, risks, and possible complications were explained to the patient, mother, and grandmother in detail, and an informed consent was obtained. The patient was placed supine on the angiographic table. The right neck was prepped and draped in the usual sterile manner. Limited ultrasound of the right internal jugular vein demonstrated patency and compressibility. A villatoro scale image was documented. After instillation of 1% local lidocaine, a small skin incision was made in the right lower neck. Under real time ultrasound guidance, the right internal jugular vein was accessed using a micro-puncture needle. The needle entry was documented. After series of exchanges a ??10 Grenadian vascular sheath was placed. Using a 5 Grenadian KMP catheter, the middle hepatic vein was catheterized and a venogram was obtained. The venogram showed normal middle hepatic vein. . A stiffer 0.035 wire was placed in the right hepatic vein and using [employer] transjugular biopsy set, four well-formed 18-gauge x 1.5 - 2.0cm core samples were obtained. Samples were given to pathology service in formalin. Post-biopsy venogram was unremarkable. The sheath was removed and hemostasis was achieved with manual compression. Sterile dressing was applied. The patient tolerated the procedure well and was transferred to the holding area in stable condition. There were no immediate complications associated with the procedure. Impression: Successful transjugular liver biopsy under fluoroscopic guidance, as described above. The pathology results are pending during this dictation. I, Dr. Goyo Forrester, performed the entire procedure. *Reading Radiologist: Goyo Forrester on 10/06/2020 at 6:21 PM Procedure Note Goyo Forrester MD - 10/06/2020 History: 15 year old male with elevated LFTs here for image-guided random liver biopsy to help evaluate for autoimmune hepatitis presence. Operators: 1. Dr. Goyo Forrester, Attending Physician Anesthesia: 1. Local anesthesia - 4 ml of 1% lidocaine 2. General ETT anesthesia Procedure: 1. Ultrasound-guided access of the right internal jugular vein. 2. Middle hepatic venogram. 3. Transcatheter biopsy of the liver under fluoroscopic guidance. Fluoroscopic time: 1.6 minutes Contrast: 10 mL of Isovue-300 Procedure in detail: The procedure, risks, and possible complications were explained to the patient, mother, and grandmother in detail, and an informed consent was obtained. The patient was placed supine on the angiographic table. The right neck was prepped and draped in the usual sterile manner. Limited ultrasound of the right internal jugular vein demonstrated patency and compressibility. A villatoro scale image was documented. After instillation of 1% local lidocaine, a small skin incision was made in the right lower neck. Under real time ultrasound guidance, the right internal jugular vein was accessed using a micro-puncture needle. The needle entry was documented. After series of exchanges a 10 Grenadian vascular sheath was placed. Using a 5 Grenadian KMP catheter, the middle hepatic vein was catheterized and a venogram was obtained. The venogram showed normal middle hepatic vein. . A stiffer 0.035 wire was placed in the right hepatic vein and using [employer] transjugular biopsy set, four well-formed 18-gauge x 1.5 - 2.0cm core samples were obtained. Samples were given to pathology service in formalin. Post-biopsy venogram was unremarkable. The sheath was removed and hemostasis was achieved with manual compression. Sterile dressing was applied. The patient tolerated the procedure well and was transferred to the holding area in stable condition. There were no immediate complications associated with the procedure. Impression: Successful transjugular liver biopsy under fluoroscopic guidance, as described above. The pathology results are pending during this dictation. I, Dr. Goyo Forrester, performed the entire procedure. *Reading Radiologist: Goyo Forrester on 10/06/2020 at 6:21 PM Goyo Forrester MD IR ORDERABLES * PATHOLOGY TISSUE EXAM (STL) (10/06/2020 10:48 AM CDT) Only the most recent of4 resultswithin the time period is included. Case Report Surgical Pathology Report ? Case: [id number] ? Authorizing Provider: ??Cayden Bustos MD ? Collected: ? 10/06/2020 10:48 AM ? Ordering Location: ? [facility] ?Received: ?10/06/2020 11:42 AM ? [facility] ? Pathologist: ? Duy Pope MD ? Specimen: ?Liver ? 10/13/2020 3:57 PM T [facility] Final Diagnosis Liver, Percutaneous Needle Biopsy: - Steatosis with inflammation. - Total NAFLD activity score = 3 (see comment). - Fibrosis stage = 1a. Comment: The total nonalcoholic fatty liver disease (NAFLD) score represents the sum of scores for steatosis + inflammation + ballooning (1 + 2 + 0 = 3). 10/13/2020 3:57 PM T [facility] Clinical History The patient is a 15-year-old boy with obesity and elevated liver enzymes who underwent percutaneous needle biopsy of the liver. Clinical differential diagnosis list includes nonalcoholic fatty liver disease and autoimmune hepatitis. Laboratory data include the following: AP of 134, ALT of 182, AST of 99, total protein of 7.5, albumin of 4.5, total bilirubin of 0.4, GGT of 96, alpha-1 antitrypsin of 128 (M1M1), ceruloplasmin of 27, and SMA of 22. 10/13/2020 3:57 PM [facility] Gross Description Submitted fixed in formalin in one container for gross and microscopic examination, labeled with the patient's name, Anders Morales, and liver, are four cores of red-weiner soft tissue with an aggregate measurement of 1.3 x 0.3 x 0.1 cm. The specimen is submitted in toto as A1. (AB/ns) 10/13/2020 3:57 PM [facility] Microscopic Description 2 H&E, 1 trichrome, 1 reticulin, 1 PAS, 1 PAS-diastase, 1 Prussian blue. Sections show needle cores of liver parenchyma. Portal tracts show mild expansion by a lymphocyte-rich infiltrate with no significant plasma cell component and no significant interface activity. Within the lobule, there is mild macrovesicular steatosis (steatosis score of 1), occasional glycogenated nuclei, moderate inflammatory infiltrates (inflammation score of 2), and occasional acidophil bodies; hepatocytes show no ballooning (ballooning score of 0). Trichrome stain shows delicate zone 3 perisinusoidal fibrosis (fibrosis stage 1a). Reticulin stain shows focal collapse of the reticulin network. PAS stain shows abundant hepatocellular glycogen. PAS-diastase stain shows PAS-positive, diastase-resistant material within sinusoidal lining cells and portal macrophages and is negative for alpha-1 antitrypsin globules. Prussian blue stain shows no significant hepatocellular iron. (DSB) 10/13/2020 3:57 PM [facility] Disclaimer The performance characteristics of all immunohistochemical and indirect immunofluorescence stains (if any) cited in this report were determined by the Histopathology Laboratory of [facility] in compliance with Clinical Laboratory Improvement Amendments of 1988 (CLIA'88) regulations. Some of these tests rely on the use of analyte-specific reagents and are subject to specific labeling requirements by the U.S. Food and Drug Administration (FDA). Such tests were developed by the Histopathology Laboratory of [facility] and have not been cleared or approved by the FDA. The FDA has determined that such clearance or approval is not necessary. These tests are used for clinical purposes and should not be regarded as investigational or for research. This case has been personally reviewed and interpreted by the attending (teaching) pathologist. 10/13/2020 3:57 PM CDT [facility] Embedded Images 10/13/2020 3:57 PM CDT [facility] Pathology/Cytolo gy ENTIRE LIVER / Unknown Collection / Unknown 10/06/2020 10:48 AM CDT 10/06/2020 11:42 AM CDT Cayden Bustos MD LAB - PATHOLOGY/CYTO LOGY ORDERABLES [facility] [address] [place] [address] * IV PLACEMENT PERFORMABLE (10/06/2020 10:40 AM CDT) Narrative Mehdi Russo Anes Asst - 10/06/2020 10:40 AM CDT Mehdi Russo Anes Asst ? 10/06/2020 10:41 AM Peripheral IV Line Placement: Patient Location: ??OR Procedure: IV start (05916). Procedure Section: ?? Skin Prep: Chloraprep. Orientation: right Location: hand Brand Name: BD Insyte. Catheter Gauge: 22 Number of Attempts: 1. Procedure Tolerance: performed while patient under general anesthesia. Procedure Start Time: 10/06/2020 10:01 AM. Staff Section ?? Anesthesia Provider: Mehdi Russo Anes Asst, Performed the procedure Grover Bey MD GENERAL ANESTHESIA O RDERABLES * ETT LINE PERFORMABLE (10/06/2020 10:39 AM CDT) Narrative Mehdi Russo Anes Asst - 10/06/2020 10:39 AM CDT Mehdi Russo Anes Asst ? 10/06/2020 10:41 AM Endotracheal Tube Placement: ? Patient Location: OR. Intubation Event Date/Time: ??10/06/2020 10:25 AM Procedure: intubation (34522). Procedure Section: ?? Sedation: under general anesthesia. Indications for Airway Management: ??anesthesia Induction: standard IV Patient Position: ??supine Mask Ventilation: easy. Blade Type: Drew Blade Size: 3 Laryngoscopy View: grade 1 (full cords) Tube: endotracheal tube Placement: oral Tube Size (MM): 7.5 Depth of Insertion (CM): 22 Measured From: teeth Cuff volume (mL): ??3 Cuff inflation pressure (CM H20): ??20 Cuff Inflated With: air Number of Attempts: 1. Placement Verified By: direct visualization, bilateral breath sounds, chest auscultation and CO2 monitor Tube secured with: ??adhesive tape. Dentition unchanged? ??Yes Difficult Airway? ??No. Procedure Start Time: 10/06/2020 10:25 AM. Staff Section ?? Anesthesia Provider: Mehdi Russo Anes Asst, Performed the procedure Grover Bey MD GENERAL ANESTHESIA O RDERABLES * PTT [facility] (09/12/2020 11:31 AM CDT) APTT 29.5 23.0 - 38.4 Seconds 09/12/2020 12:47 PM CDT [facility] Comment:Suggested therapeuti c range for full dose I.V. unfractionated heparin therapy for venous thromboembolism is 71 to 109 seconds. Blood BLOOD SPECIMEN / Unknown Lab Venipuncture / Unknown 09/12/2020 11:31 AM CDT 09/12/2020 12:13 PM CDT Narrative [facility] - 09/12/2020 12:47 PM CDT Reference intervals for this test are valid for adults at [facility]. Pediatric reference intervals may be slightly different. Cayden Bustos MD LAB - COAGULATION OR DERABLES [facility] [address] [place] [id number], [facility] [phone] * LYSOSOMAL ACID LIPASE DEFICIENCY (FILIPPO-D) (09/12/2020 10:58 AM CDT) Lysosomal Acid Lipase Deficiency See Scanned Report 09/18/2020 2:44 PM CDT LYSOSOMAL DISEASES TESTING LAB Blood BLOOD SPECIMEN / Unknown Lab Venipuncture / Unknown 09/12/2020 10:58 AM CDT 09/12/2020 12:14 PM CDT Cayden Bustos MD LAB - CHEMISTRY ORDE JANET LYSOSOMAL DISEASES TESTING LAB [facility] [address] [facility], [address] * TISSUE TRANSGLUTAMINASE AB IGA (09/12/2020 10:58 AM CDT) Only the most recent of2 resultswithin the time period is included. Tissue Transglutaminase (tTG) Ab, IgA <2 0 - 3 U/mL 09/14/2020 7:24 AM CDT [facility] ([facility]) Comment: INTERPRETIVE INFORMATION: Tissue Transglutaminase (tTG) Antibody, IgA 3 U/mL or less: Negative 4-10 U/mL: Weak Positive 11 U/mL or greater: Positive Presence of the tissue transglutaminase (tTG) IgA antibody is associated with glutensensitive enteropathies such as celiac disease and dermatitis herpetiformis. tTG IgA antibody concentrations greater than 40 U/mL usually correlate with results of duodenal biopsies consistent with a diagnosis of celiac disease. For antibody concentrations greater or equal to 4 U/mL but less than or equal to 40 U/mL, additional testing for endomysial (RADAMES) IgA concentrations may improve the positive predictive value for disease. Performed By: [facility] [address] [place] [address] Sericulture Teacher: Carlota Baxter MD Blood BLOOD SPECIMEN / Unknown Lab Venipuncture / Unknown 09/12/2020 10:58 AM CDT 09/12/2020 12:13 PM CDT Cayden Bustos MD LAB - SEROLOGY ORDER MARIAN [facility] ([facility]) [address] * [id number] BLOOD PHENOTYPING PANEL (09/12/2020 10:58 AM CDT) Csrpj-[id number] n Phenotype M1M1 09/15/2020 9:47 PM CDT [facility] ([facility]) Comment: The patient appears to have a normal phenotype. All M alleles (including subtypes M1, M2, and M3) produce normal serum concentrations of sljgy-[id number] inhibitor and are not associated with clinical disease. Caution in interpretation is advised if the patient has been transfused within the previous 21 days. Performed By: [facility] [address] [place] [address] Sericulture Teacher: Carlota Baxter MD [id number]-[id number] n 128 90 - 200 mg/dL 09/15/2020 9:47 PM CDT [facility] ([facility]) Comment:To convert to umol/L , multiply mg/dL by 0.185 Blood BLOOD SPECIMEN / Unknown Lab Venipuncture / Unknown 09/12/2020 10:58 AM CDT 09/12/2020 12:13 PM CDT Cayden Bustos MD LAB - CHEMISTRY ORDMady GONZALES [facility] ([facility]) [address] * [place] BLOOD SCREEN W/REFLEX TITER (09/12/2020 10:58 AM CDT) Only the most recent of2 resultswithin the time period is included. B[place] IgG None Detected None Detected 09/14/2020 8:04 AM CDT [facility] ([facility]) Comment: If suspicion of connective tissue disease is strong and BEVERLY EIA is negative, consider testing for BEVERLY by IFA ([id number]). INTERPRETIVE INFORMATION: Anti-Nuclear Antibodies ([place]), IgG by BERNARDA Antinuclear Antibodies (BEVERLY), IgG by BERNARDA: BEVERLY specimens are screened using enzyme-linked immunosorbent assay (BERNARDA) methodology. All BERNARDA results reported as Detected are further tested by indirect fluorescent assay (IFA) using HEp-2 substrate with an IgG-specific conjugate. The BEVERLY BERNARDA screen is designed to detect antibodies against dsDNA, histones, SS-A (Ro), SS-B (La), Ortiz, Ortiz/SPLITTING MACHINE TENDER, Scl-70, Sun-1, centromeric proteins, other antigens extracted from the HEp-2 cell nucleus. BEVERLY BERNARDA assays have been reported to have lower sensitivities than BEVERLY IFA for systemic autoimmune rheumatic diseases (SARD). Negative results do not necessarily rule out SARD. Performed By: [facility] [address] [place] [address] Sericulture Teacher: Carlota Baxter MD Blood BLOOD SPECIMEN / Unknown Lab Venipuncture / Unknown 09/12/2020 10:58 AM CDT 09/12/2020 12:13 PM CDT Cayden Bustos MD LAB - CHEMISTRY MICHEAL GONZALES [facility]) [address] [place] [address], [facility] * MICROSOMAL ANTIBODY LIVER/KIDNEY (09/12/2020 10:58 AM CDT) Only the most recent of2 resultswithin the time period is included. Liver/Kidney Microsomal Antibody IgG <1:20 <1:20 09/14/2020 6:07 PM CDT [facility] Comment: INTERPRETIVE INFORMATION: ??Shzwe-Ycyngs-Qfdikwqdv Abs, IgG Liver-Kidney Microsome IgG antibody (anti-LKM), as detected by indirect immunofluorescent antibody (IFA) techniques, may be observed in patients with autoimmune hepatitis type 2 (AIH-2), AIH-2 associated with autoimmune seolottyyeiunqghzy-truuhrcwubz-tczsnttcja dystrophy (APECED), viral hepatitis C or D, and some forms of drug-induced hepatitis. This IFA does not differentiate among the four types of LKM antibodies (LKM-1, LKM-2, LKM-3, and a fourth type that recognizes CY and CY antigens). Of these, anti-LKM-1 (cytochrome [id number]) IgG antibodies are considered specific for AIH-2. This test was developed and its performance characteristics determined by [facility]. It has not been cleared or approved by the US Food and Drug Administration. This test was performed in a CLIA certified laboratory and is intended for clinical purposes. Performed By: [facility] [address] [place] [address] Sericulture Teacher: Carlota Baxter MD Blood BLOOD SPECIMEN / Unknown Lab Venipuncture / Unknown 09/12/2020 10:58 AM CDT 09/12/2020 12:13 PM CDT Cayden Bustos MD LAB - CHEMISTRY MICHEAL GONZALES [facility]) [address] [place], [place] [address] * CERULOPLASMIN (09/12/2020 10:58 AM CDT) Only the most recent of2 resultswithin the time period is included. Ceruloplasmin 27 20 - 43 mg/dL 09/12/2020 1:34 PM CDT [facility] Blood BLOOD SPECIMEN / Unknown Lab Venipuncture / Unknown 09/12/2020 10:58 AM CDT 09/12/2020 12:13 PM CDT Cayden Bustos MD LAB - CHEMISTRY MICHEAL GONZALES Performing Organization Address [facility]/ZIP Co de Phone Number [address] [address], [facility] [phone] * (ABNORMAL) SMOOTH MUSCLE ANTIBODY (09/12/2020 10:58 AM CDT) Actin (Smooth Muscle) Antibody 22(H) 0 - 19 Units 09/13/2020 4:08 PM CDT [facility] ([facility]) Comment: ? Negative ? 0 - 19 ? Weak positive ? 20 - 30 ? Moderate to strong positive ? >30 Actin Antibodies are found in 52-85% of patients with autoimmune hepatitis or chronic active hepatitis and in 22% of patients with primary biliary cirrhosis. Blood BLOOD SPECIMEN / Unknown Lab Venipuncture / Unknown 09/12/2020 10:58 AM CDT 09/12/2020 12:13 PM CDT Narrative [facility] ([facility]) - 09/13/2020 4:08 PM CDT Performed at: ??01 - [facility] [place] [address] [facility], [place], [place] ??[id number] Nurse Case Manager: Yusuf Cole PhD, Phone: ??[phone] Cayden Bustos MD LAB - SEROLOGY ORDER MARIAN Performing Organization Address City/[facility]/ZIP Co de Phone Number [facility]) [address] [place] [address] * HEPATITIS B SURFACE ANTIBODY (09/12/2020 10:58 AM CDT) Hepatitis B Virus Surface Antibody Non-react carmen Non-react carmen 09/12/2020 1:53 PM CDT [facility] Comment: < 8 mIU/mL Hepatitis B surface Antibody (HBsAb). Nonreactive for HBsAb - individual is considered not immune to Hepatitis B Virus infection. Hepatitis B Surface Antibody Quantitative 0.2 <8.0 mIU/mL 09/12/2020 1:53 PM CDT [facility] Comment: Hepatitis B Surface Antibody Numeric Result Interpretation: ? Nonreactive: ?<8.0 mIU/mL ? Indeterminate: ??8.0 - 12.0 mIU/mL ? Reactive: ?>12.0 mIU/mL ? Blood BLOOD SPECIMEN / Unknown Lab Venipuncture / Unknown 09/12/2020 10:58 AM CDT 09/12/2020 12:13 PM CDT Cayden Bustos MD LAB - CHEMISTRY ORDE JANET Performing Organization Address City/[facility]/ZIP Co de Phone Number [facility] [address] [place] [address], [facility] [phone] * HEPATITIS B SURFACE ANTIGEN W RFLX CONFIRMATION (09/12/2020 10:58 AM CDT) Only the most recent of2 resultswithin the time period is included. Hepatitis B Virus Surface Antigen Non-reacti ve Non-reacti ve 09/12/2020 4:38 PM CDT [facility] Blood BLOOD SPECIMEN / Unknown 09/12/2020 10:58 AM CDT 09/12/2020 4:06 PM CDT Cayden Bustos MD LAB - CHEMISTRY MICHEAL GONZALES [address] [address], [place] [phone] * CK BLOOD (09/12/2020 10:58 AM CDT) Only the most recent of2 resultswithin the time period is included. CK Total 162 30 - 200 U/L 09/12/2020 12:48 PM CDT [facility] Blood BLOOD SPECIMEN / Unknown Lab Venipuncture / Unknown 09/12/2020 10:58 AM CDT 09/12/2020 12:19 PM CDT Cayden Bustos MD LAB - CHEMISTRY MICHEAL GONZALES Performing Organization Address City/[facility]/ZIP Co de Phone Number [address] [address], [place] [phone] * IGA BLOOD (09/12/2020 10:58 AM CDT) Only the most recent of2 resultswithin the time period is included. IgA 115 60 - 337 mg/dL 09/12/2020 1:35 PM CDT [facility] Blood BLOOD SPECIMEN / Unknown Lab Venipuncture / Unknown 09/12/2020 10:58 AM CDT 09/12/2020 12:13 PM CDT Cayden Bustos MD LAB - CHEMISTRY MICHEAL GONZALES [address] [address], [place] [phone] * HEPATITIS C ANTIBODY (09/12/2020 10:58 AM CDT) Only the most recent of2 resultswithin the time period is included. Hepatitis C Antibody Non-react carmen Non-reac tive 09/12/2020 1:53 PM CDT [facility] Comment:Hepatitis C Antibody screen indicates [...] Bustos MD LAB - CHEMISTRY MICHEAL GONZALES [facility] [address] [place] [address], [facility] [phone] * (ABNORMAL) SARS-COV-2 (COVID-19) INTERNAL (08/08/2020 12:38 PM CDT) Only the most recent of4 resultswithin the time period is included. Pathologist [facility] COVID-19 PCR Detected( AA) Not detected 08/09/2020 3:21 AM CDT [facility] Microbiology SPECIMEN FROM NASOPHARYNGEAL STRUCTURE / Unknown Collection / Unknown 08/08/2020 12:38 PM CDT 08/08/2020 12:38 PM CDT Narrative [facility] - 08/09/2020 3:21 AM CDT This nucleic acid amplification assay performance was validated by [facility]. This test has been authorized by the Food and Drug administration (FDA)under an Emergency??Use Authorization (EUA). This test has been validated in accordance with the FDA's guidance document Policy for Diagnostic Testing in Laboratories Certified to perform High Complexity Testing under CLIA prior to Emergency Use Authorization for Coronavirus Disease-2019 during the Public Health Emergency issued on April 28, 2019. FDA independent review of this validation is pending. This test is only authorized for the duration of time the declaration that circumstances exist justifying the authorization of emergency use of in vitro diagnostic tests for detection of SARS-CoV-2 virus and/or diagnosis of COVID-19 infection under section 564(b)(1) of the Act, 21 U.S.C 360bbb-3 (b)(1), unless the authorization is terminated or revoked sooner. Fact Sheets for this EUA assay are available upon request. Sary Franklin MD LAB - MICROBIOLO GY ORDERABLES Performing Organization Address City/[facility] Co de Phone Number [facility] [address] [place] [phone] * PLATELET FUNCTION SCREEN PANEL (08/07/2020 11:36 AM CDT) Pathologist [facility] Collagen Epinephrine 107 69 - 179 sec 08/07/2020 12:45 PM CDT [facility] Blood BLOOD SPECIMEN / Unknown Lab Venipuncture / Unknown 08/07/2020 11:36 AM CDT 08/07/2020 12:03 PM CDT [facility] - 08/07/2020 12:45 PM CDT NORMAL collagen and epinephrine (Col/Epi) - This is consistent with normal platelet function, no further testing indicated. Closure Time above the laboratory cut-off could reflect reduced platelet function caused by hematocrit <35% or platelet counts <150,000/uL. ??Specimens with hematocrit levels >50% or platelet counts >500,000/uL have not been evaluated. Sary Franklin MD LAB - COAGULATIO N ORDERABLES Performing Organization Address [facility] Co de Phone Number [facility] [address] * (ABNORMAL) PT PTT PANEL (08/07/2020 11:36 AM CDT) Only the most recent of2 resultswithin the time period is included. Pathologist [facility] PT 13.3 11.3 - 14.8 sec 08/07/2020 12:06 PM CDT [facility] INR 1.05(L) 2 - 3 08/07/2020 12:06 PM CDT [facility] PTT 27.7 23.0 - 38.4 sec 08/07/2020 12:06 PM CDT [facility] Blood BLOOD SPECIMEN / Unknown Lab Venipuncture / Unknown 08/07/2020 11:36 AM CDT 08/07/2020 11:54 AM CDT Narrative [facility] - 08/07/2020 12:06 PM CDT Recommended therapeutic INR ranges for Oral Anticoagulant Therapy: ??2.0-3.0 For prevention of Thrombosis or Embolism and treatment of Venous Thrombosis. 2.5- 3.5 for prevention of Recurrent Embolism or treatment of patients with Mechanical Prosthetic Heart Valves. Sary Franklin MD LAB - COAGULATIO N ORDERABLES Performing Organization Address [facility]/ZIP Co de Phone Number [facility] [address] * CALPROTECTIN FECAL (07/03/2020 1:27 PM CDT) Calprotectin Fecal 37 <=49 ug/g 07/07/2020 5:53 PM CDT [facility] ([facility]) Comment: REFERENCE INTERVAL: Calprotectin, Fecal by Immunoassay ??Less than 50 ug/g.........Normal ??50-120 ug/g...............Borderline elevated, test should be ?re-evaluated in 4-6 weeks. ??121 ug/g or greater.......Elevated Performed by [facility], [address] [place] [address] [email or web address], Gregory Rowan MD, Lab. Director Stool STOOL SPECIMEN / Unknown Collection / Unknown 07/03/2020 1:27 PM CDT 07/03/2020 1:32 PM CDT Serina Cordova MD LAB - BODY FLUID ORD ERABLES [facility]) [address] [place] [address], [facility] * (ABNORMAL) C-REACTIVE PROTEIN (07/01/2020 11:46 AM CDT) Only the most recent of2 resultswithin the time period is included. C-Reactive Protein 1.73(H) 0.00 - 0.50 mg/dL 07/01/2020 2:57 PM CDT [facility] Blood BLOOD SPECIMEN / Unknown Lab Venipuncture / Unknown 07/01/2020 11:46 AM CDT 07/01/2020 12:03 PM CDT Serina Cordova MD LAB - CHEMISTRY ORDE RABLES [facility] [address] [place], [place] [address] [place] [address] * ERYTHROCYTE SEDIMENTATION RATE (07/01/2020 11:46 AM CDT) Only the most recent of4 resultswithin the time period is included. Pathologist [facility] Erythrocyte Sedimentation Rate Automated 13 <15 MM/HR 07/01/2020 12:17 PM CDT [facility] Blood BLOOD SPECIMEN / Unknown Lab Venipuncture / Unknown 07/01/2020 11:46 AM CDT 07/01/2020 12:03 PM CDT Serina Cordova MD LAB - HEMATOLOGY ORD ERABLES [facility] [address] [place], [place] [address] * XR ANKLE RIGHT 3VW OR MORE (11/08/2019 5:25 PM CDT) Only the most recent of2 resultswithin the time period is included. Anatomical Region Laterality Modality Lower Extremity Radiographic Tran ging 11/08/2019 5:30 PM CDT Narrative 11/08/2019 5:30 PM CDT PROCEDURE: XR ANKLE RIGHT 3VW OR MORE 11/08/2019 5:30 PM HISTORY: Pain in right ankle and joints of right foot. COMPARISON: 10/28/2014 Report: No displaced fracture, dislocation or aggressive bone lesion seen. The soft tissues appear within normal limits; no radiopaque foreign body seen. Procedure Note Adis Major MD - 11/08/2019 PROCEDURE: XR ANKLE RIGHT 3VW OR MORE 11/08/2019 5:30 PM HISTORY: Pain in right ankle and joints of right foot. COMPARISON: 10/28/2014 Report: No displaced fracture, dislocation or aggressive bone lesion seen. The soft tissues appear within normal limits; no radiopaque foreign body seen. Sahra Millard [facility] DIAGNOSTI C IMAGING ORDERABLES * C DIFFICILE BY PCR (10/05/2018 12:00 PM CDT) Pathologist [facility] C difficile Toxin B Gene Negative Negative 10/06/2018 12:34 PM CDT [facility] Stool STOOL SPECIMEN / Unknown Collection / Unknown 10/05/2018 12:00 PM CDT 10/06/2018 8:43 AM CDT Narrative [facility] - 10/06/2018 12:34 PM CDT C. difficile target DNA sequences are not detected. Varghese Parham PA-C LAB - MICROBIOLOGY O MARLINE Performing Organization Address [facility] Co de Phone Number [facility] [address] [place] [address] * GIARDIA CRYPTOSPORIDIUM ANTIGEN PANEL (10/05/2018 12:00 PM CDT) [facility] Giardia Antigen Feces Negative Negative 10/06/2018 2:53 PM CDT [facility] Cryptosporidium Antigen Feces Negative Negative 10/06/2018 2:53 PM CDT [facility] Stool STOOL SPECIMEN / Unknown Collection / Unknown 10/05/2018 12:00 PM CDT 10/05/2018 1:56 PM CDT Varghese Parham PA-C LAB - MICROBIOLOGY O RDERABLES Performing Organization Address [facility] Co de Phone Number [facility] [address] [place] [address] * EGD (09/05/2018 2:43 PM CDT) [facility] Report Endoscopy POC _ Patient Name: Anders Morales ? Date of : 2005 ? Admit Type: Outpatient Age: 13 ? Gender: Male Race: White ? Attending MD: Serina Cordova , Order #: [id number] ? _ Procedure: ? Upper GI endoscopy Indications: ? Epigastric abdominal pain Providers: ? Serina Cordova Referring MD: ?Sary Franklin MD Medicines: ? Monitored Anesthesia Care Complications: ? No immediate complications. Estimated blood loss: Minimal. _ Procedure: ? After obtaining informed consent, the endoscope was passed ? under direct vision. Throughout the procedure, the ? patient's blood pressure, pulse, and oxygen saturations ? were monitored continuously. The Endoscope was introduced ? through the mouth, and advanced to the second part of ? duodenum. The upper GI endoscopy was accomplished without ? difficulty. The patient tolerated the procedure well. Findings: ? The examined esophagus was normal. Biopsies were taken with a cold ? forceps for histology. Estimated blood loss was minimal. ? The entire examined stomach was normal. Biopsies were taken with a cold ? forceps for histology. Estimated blood loss was minimal. ? The examined duodenum was normal. Biopsies were taken with a cold ? forceps for histology. Estimated blood loss was minimal. Impression: ?- Normal esophagus. Biopsied. ? - Normal stomach. Biopsied. ? - Normal examined duodenum. Biopsied. Recommendation: ?- Discharge patient to home (with parent). ? - Await pathology results. ? - Return to GI clinic in 8 weeks. ? Procedure Code(s): ? --- Professional --- ? 28641, Esophagogastrodu odenoscopy, flexible, transoral; with biopsy, ? single or multiple ? --- Technical --- ? 84889, Esophagogastrodu odenoscopy, flexible, transoral; with biopsy, ? single or multiple Diagnosis Code(s): ? --- Professional --- ? R10.13, Epigastric pain ? --- Technical --- ? R10.13, Epigastric pain CPT copyright 2017 [employer]. All rights reserved. The codes documented in this report are preliminary and upon photoflash powder mixer review may be revised to meet current compliance requirements. Dr. Serina Cordova MD Serina Cordova, 09/05/2018 12:13:49 PM Number of Addenda: 0 Note Initiated On: 08/30/2018 2:43 PM Procedure Date: ? 09/05/2018 2:43:00 PM ? This report has been signed electronically. [facility] 09/05/2018 2:43 PM CDT Serina Cordova MD GI PROCEDURE ORDERAB LES [facility] [address] [facility] [place] [address] * ENDOSCOPY, COLON, DIAGNOSTIC (09/05/2018 2:42 PM CDT) Report Endoscopy POC _ Patient Name: Anders Morales ? Date of : 2005 ? Admit Type: Outpatient Age: 13 ? Gender: Male Race: White ? Attending MD: Serina Cordova , Order #: [id number] ? _ Procedure: ? Colonoscopy Indications: ? Crohn's disease of the colon, Suspected Crohn's disease Providers: ? Serina Cordova Referring MD: ?Sary Franklin MD Medicines: ? Monitored Anesthesia Care Complications: ? No immediate complications. Estimated blood loss: Minimal. _ Procedure: ? After I obtained informed consent, the scope was passed ? under direct vision. Throughout the procedure, the ? patient's blood pressure, pulse, and oxygen saturations ? were monitored continuously. The Colonoscope was ? introduced through the anus and advanced to the terminal ? ileum. The colonoscopy was performed without difficulty. ? The patient tolerated the procedure well. The quality of ? the bowel preparation was good. Findings: ? The perianal and digital rectal examinations were normal. ? The colon (entire examined portion) appeared normal. Biopsies were taken ? with a cold forceps for histology. Estimated blood loss was minimal. ? The terminal ileum appeared normal. Biopsies were taken with a cold ? forceps for histology. Estimated blood loss was minimal. Impression: ?- The entire examined colon is normal. Biopsied. ? - The examined portion of the ileum was normal. Biopsied. Recommendation: ?- Discharge patient to home (with parent). ? - Await pathology results. ? - Return to GI office in 8 weeks. ? Procedure Code(s): ? --- Professional --- ? 45621, Colonoscopy, flexible; with biopsy, single or multiple ? --- Technical --- ? 85257, Colonoscopy, flexible; with biopsy, single or multiple Diagnosis Code(s): ? --- Professional --- ? K50.10, Crohn's disease of large intestine without complications ? --- Technical --- ? K50.10, Crohn's disease of large intestine without complications CPT copyright 2017 [employer]. All rights reserved. The codes documented in this report are preliminary and upon photoflash powder mixer review may be revised to meet current compliance requirements. Dr. Serina Cordova MD Serina Cordova, 09/05/2018 12:17:03 PM Number of Addenda: 0 Note Initiated On: 08/30/2018 2:42 PM Procedure Date: ? 09/05/2018 2:42:00 PM ? This report has been signed electronically. [facility] 09/05/2018 2:42 PM CDT Serina Cordova MD GI PROCEDURE ORDERAB LES Performing Organization Address [facility] Co de Phone Number [facility] [address] [place] [address] * (ABNORMAL) HGB HCT PANEL (03/03/2018 3:45 PM SUPPLIER RELATIONSHIP DIRECTOR) Hemoglobin 12.2(L) 13.0 - 16.0 gm/dL 03/03/2018 3:58 PM SUPPLIER RELATIONSHIP DIRECTOR [facility] Hematocrit 37.4 37.0 - 49.0 % 03/03/2018 3:58 PM SUPPLIER RELATIONSHIP DIRECTOR [facility] Blood BLOOD SPECIMEN / Unknown 03/03/2018 3:45 PM SUPPLIER RELATIONSHIP DIRECTOR 03/03/2018 3:48 PM SUPPLIER RELATIONSHIP DIRECTOR Cayden Bustos MD LAB - HEMATOLOGY ORD ERABLES Performing Organization Address [facility] Co de Phone Number [facility] [address] [place] [address] * US GUIDE NEEDLE PLACEMENT (03/03/2018 12:12 PM SUPPLIER RELATIONSHIP DIRECTOR) Anatomical Region Laterality Modality Abdomen, Lung, Chest, Breast Ult rasound 03/06/2018 9:58 AM SUPPLIER RELATIONSHIP DIRECTOR Impressions 03/06/2018 10:00 AM SUPPLIER RELATIONSHIP DIRECTOR Dynamic imaging of the right upper quadrant was provided for percutaneous biopsy. Reading Radiologist: Dean Weber MD on 03/06/2018 at 10:00 AM Narrative 03/06/2018 10:00 AM SUPPLIER RELATIONSHIP DIRECTOR INDICATION: Abnormal liver enzymes EXAMINATION: Sonographic guidance provided for percutaneous biopsy of the liver performed by gastroenterology COMPARISON: None Procedure Note Dean Weber MD - 03/06/2018 INDICATION: Abnormal liver enzymes EXAMINATION: Sonographic guidance provided for percutaneous biopsy of the liver performed by gastroenterology COMPARISON: None IMPRESSION Dynamic imaging of the right upper quadrant was provided for percutaneous biopsy. Reading Radiologist: Dean Weber MD on 03/06/2018 at 10:00 AM Cayden Bustos MD US ORDERABLES * VIRAL CULTURE MISC (03/03/2018 12:00 PM SUPPLIER RELATIONSHIP DIRECTOR) [facility] Viral Culture No virus isolated. 03/13/2018 8:10 AM SUPPLIER RELATIONSHIP DIRECTOR [facility] Microbiology NEEDLE BIOPSY OF LIVER / Unknown Collection / Unknown 03/03/2018 12:00 PM SUPPLIER RELATIONSHIP DIRECTOR 03/03/2018 2:45 PM SUPPLIER RELATIONSHIP DIRECTOR Narrative [facility]) - 03/13/2018 8:10 AM SUPPLIER RELATIONSHIP DIRECTOR Performed at: ??01 - [facility] [address] ??[phone] Nurse Case Manager: Kings Davis MD, Phone: ??[phone] Cayden Bustos MD LAB - MICROBIOLOGY O RDERABLES [facility] ([facility]) [address] [place] [address] * BLOOD TYPE VERIFICATION (03/03/2018 10:22 AM SUPPLIER RELATIONSHIP DIRECTOR) [facility] ABO A 03/03/2018 10:59 AM SUPPLIER RELATIONSHIP DIRECTOR [facility] Rh Type Positive 03/03/2018 10:59 AM SUPPLIER RELATIONSHIP DIRECTOR [facility] Blood Bank BLOOD SPECIMEN / Unknown Venipuncture / Unknown 03/03/2018 10:22 AM SUPPLIER RELATIONSHIP DIRECTOR 03/03/2018 10:26 AM SUPPLIER RELATIONSHIP DIRECTOR Cayden Bustos MD LAB - BLOOD BANK ORD ERABLES [facility] [address] [place] [address] * PREPARE (CROSSMATCH) RBC UNIT(S), 1 Units (03/03/2018 10:00 AM SUPPLIER RELATIONSHIP DIRECTOR) Product Code [id number] [facility] Unit Donor # [id number] [facility] ABO Donor Type A [facility] Rh Type Unit POS [facility] Unit Status Ret'd [facility] ABO Rh Type Unit APOS [facility] Donor Unit Expiration Date [facility] Blood Type Barcode [address] [facility] Blood Bank BLOOD SPECIMEN / Unknown 03/03/2018 10:00 AM SUPPLIER RELATIONSHIP DIRECTOR Cayden Bustos MD LAB - BLOOD BANK ORD ERABLES Performing Organization Address [facility] Co de Phone Number [facility] [address] [place] [address] * TYPE + SCREEN PANEL (03/03/2018 9:21 AM SUPPLIER RELATIONSHIP DIRECTOR) ABO A 03/03/2018 10:59 AM SUPPLIER RELATIONSHIP DIRECTOR [facility] Rh Type Positive 03/03/2018 10:59 AM SUPPLIER RELATIONSHIP DIRECTOR [facility] Comment:History checked. Col lect retype. Antibody Screen Negative 03/03/2018 10:59 AM SUPPLIER RELATIONSHIP DIRECTOR [facility] Blood Bank BLOOD SPECIMEN / Unknown Lab Venipuncture / Unknown 03/03/2018 9:21 AM SUPPLIER RELATIONSHIP DIRECTOR 03/03/2018 9:33 AM SUPPLIER RELATIONSHIP DIRECTOR Cayden Bustos MD LAB - BLOOD BANK ORD ERABLES Performing Organization Address [facility] Co de Phone Number [facility] [address] [place] [address] * MRI ENTEROGRAPHY (01/18/2018 1:05 PM SUPPLIER RELATIONSHIP DIRECTOR) Anatomical Region Laterality Modality Magnetic Resonan ce 01/18/2018 1:22 PM SUPPLIER RELATIONSHIP DIRECTOR Impressions 01/18/2018 3:23 PM SUPPLIER RELATIONSHIP DIRECTOR Enhancing, thickened jejunal loops in left upper quadrant. While this can be found in Crohn's disease, it can also be seen in enteritis. The terminal ileum is unremarkable. IAce, have personally reviewed the images and I agree with this report. Reading Radiologist: Ace Villalobos MD on 01/18/2018 at 3:23 PM Narrative 01/18/2018 3:23 PM SUPPLIER RELATIONSHIP DIRECTOR EXAMINATION: MRI OF THE ABDOMEN WITHOUT AND WITH CONTRAST MRI OF THE PELVIS WITHOUT AND WITH CONTRAST HISTORY: ??12-year-old male with elevated liver enzymes TECHNIQUE: Magnetic resonance images of the abdomen and pelvis were obtained prior to and following administration gadolinium. Oral Volumen and 1 mg of intramuscular glucagon was administered prior to the examination. Protocol: MR enterography Contrast: 8. 9 mL intravenous Gadavist FINDINGS: No focal liver lesion is identified. The gallbladder is normal. No biliary ductal dilatation is identified. The pancreas and adrenal glands are normal. The kidneys are normal. No renal calculi or hydronephrosis is identified. The spleen is normal. Contrast opacifies the stomach as well as small and large bowel. There is adequate distention of the bowel lumen. There is diffuse wall thickening of the jejunum with wall enhancement. The terminal ileum appears normal. The appendix appears normal. No abdominal lymphadenopathy is present. The urinary bladder is distended with fluid and appears normal. No free fluid is identified. No inguinal lymphadenopathy is seen. The osseous structures are intact and well aligned. Procedure Note Ace Villalobos MD - 01/18/2018 EXAMINATION: MRI OF THE ABDOMEN WITHOUT AND WITH CONTRAST MRI OF THE PELVIS WITHOUT AND WITH CONTRAST HISTORY: 12-year-old male with elevated liver enzymes TECHNIQUE: Magnetic resonance images of the abdomen and pelvis were obtained prior to and following administration gadolinium. Oral Volumen and 1 mg of intramuscular glucagon was administered prior to the examination. Protocol: MR enterography Contrast: 8. 9 mL intravenous Gadavist FINDINGS: No focal liver lesion is identified. The gallbladder is normal. No biliary ductal dilatation is identified. The pancreas and adrenal glands are normal. The kidneys are normal. No renal calculi or hydronephrosis is identified. The spleen is normal. Contrast opacifies the stomach as well as small and large bowel. There is adequate distention of the bowel lumen. There is diffuse wall thickening of the jejunum with wall enhancement. The terminal ileum appears normal. The appendix appears normal. No abdominal lymphadenopathy is present. The urinary bladder is distended with fluid and appears normal. No free fluid is identified. No inguinal lymphadenopathy is seen. The osseous structures are intact and well aligned. IMPRESSION Enhancing, thickened jejunal loops in left upper quadrant. While this can be found in Crohn's disease, it can also be seen in enteritis. The terminal ileum is unremarkable. I, Ace Villalobos, have personally reviewed the images and I agree with this report. Reading Radiologist: Ace Villalobos MD on 01/18/2018 at 3:23 PM Serina Cordova MD MR ORDERABLES * (ABNORMAL) ISIDRO-BAR VIRUS PANEL (12/28/2017 10:35 AM CDT) Isidro-Mock Virus Antibody IgG Early Antigen <5.0 0.0 - 10.9 U/mL 12/31/2017 5:15 AM CDT [facility] ([facility]) Comment: INTERPRETIVE INFORMATION: Isidro-Mock Virus Antibody to ?Early D Antigen (EA-D), IgG ??8.9 U/mL or less........Not Detected ??9.0-10.9 U/mL...........Indeterminate - Repeat testing in ?10-14 days may be helpful. ??11.0 U/mL or greater....Detected Interpretive information regarding serologic features of EBV-associated diseases is available at [email or web address]. Performed by [facility], [address] [place] [id number] www.[employer], Gregory Rowan MD, Lab. Director Isidro-Mock Virus Antibody IgG Viral Capsid Antigen 336.0(H) 0.0 - 21.9 U/mL 12/31/2017 5:15 AM CDT [facility] ([facility]) Comment: INTERPRETIVE INFORMATION: Isidro-Mock Virus Antibody to ?Viral Capsid Antigen, IgG ??17.9 U/mL or less.......Not Detected ??18.0-21.9 U/mL..........Indeterminate - Repeat testing in ?10-14 days may be helpful. ??22.0 U/mL or greater....Detected Interpretive information regarding serologic features of EBV-associated diseases is available at [email or web address]. Isidro-Mock Virus Antibody IgM Viral Capsid Antigen <10.0 0.0 - 43.9 U/mL 12/31/2017 5:15 AM [facility] ([facility]) Comment: INTERPRETIVE INFORMATION: Isidro-Mock Virus Antibody to ?Viral Capsid Antigen, IgM ??35.9 U/mL or less.......Not Detected ?36.0-43.9 U/mL..........Indeterminate - Repeat testing in ?10-14 days may be helpful. ??44.0 U/mL or greater....Detected Interpretive information regarding serologic features of EBV-associated diseases is available at [email or web address]. Isidro-Mock Virus Antibody IgG Nuclear Antigen 8.2 0.0 - 21.9 U/mL 12/31/2017 5:15 AM [facility] ([facility]) Comment: INTERPRETIVE INFORMATION: Isidro-Mock Virus Antibody to ?Nuclear Antigen, IgG ??17.9 U/mL or less.......Not Detected ??18.0-21.9 U/mL..........Indeterminate - Repeat testing in ?10-14 days may be helpful. ??22.0 U/mL or greater....Detected Interpretive information regarding serologic features of EBV-associated diseases is available at [email or web address]. Blood BLOOD SPECIMEN / Unknown Lab Venipuncture / Unknown 12/28/2017 10:35 AM CDT 12/28/2017 11:08 AM CDT Serina Cordova MD LAB - CHEMISTRY MICHEAL GONZALES [facility]) [address] [place] [address] * TSH (12/28/2017 10:35 AM CDT) Pathologist [facility] TSH 1.375 0.35 - 4.94 uIU/mL 12/28/2017 12:24 PM CDT [facility] Blood BLOOD SPECIMEN / Unknown Lab Venipuncture / Unknown 12/28/2017 10:35 AM CDT 12/28/2017 11:07 AM CDT Serina Cordova MD LAB - CHEMISTRY MICHEAL GONZALES Performing Organization Address City/[facility]/ZIP Co de Phone Number [facility] [address] * T4 FREE (12/28/2017 10:35 AM CDT) [facility] T4 Free 0.91 0.71 - 1.48 ng/dL 12/28/2017 12:24 PM CDT [facility] Blood BLOOD SPECIMEN / Unknown Lab Venipuncture / Unknown 12/28/2017 10:35 AM CDT 12/28/2017 11:07 AM CDT Serina Cordova MD LAB - CHEMISTRY MICHEAL GONZALES Performing Organization Address [facility]/ZIP Co de Phone Number [facility] [address] * (ABNORMAL) F-ACTIN (SMOOTH MUSCLE) ANTIBODY W REFLEX TITER (12/28/2017 10:34 AM CDT) [facility] F-Actin Antibody IgG 48(H) 0 - 19 Units 12/30/2017 6:45 AM CDT [facility] ([facility]) Comment: INTERPRETIVE INFORMATION: F-Actin (Smooth Muscle) Antibody, IgG by BERNARDA ??19 Units or less ....... Negative ??20 - 30 Units .......... Weak Positive-Suggest repeat ? testing in two to three weeks ? with fresh specimen. ??31 Units or greater..... Positive-Suggestive of ? autoimmune hepatitis type 1 ? or chronic active hepatitis. F-actin IgG antibodies have been shown to have increased sensitivity for autoimmune hepatitis (AIH) but lower specificity than smooth muscle antibodies (SMA). F-actin IgG antibodies can also be seen in SMA-negative disease controls (non-AIH), especially in patients with primary biliary cirrhosis and chronic hepatitis C infections. Some patients with AIH may be SMA-positive but negative for F-actin IgG. Consider testing for SMA by IFA if suspicion for AIH is strong. Performed by [facility], [address] [place] [address] www.[employer], Gregory Rowan MD, Lab. Director Blood BLOOD SPECIMEN / Unknown Lab Venipuncture / Unknown 12/28/2017 10:34 AM CDT 12/28/2017 11:07 AM CDT Serina Cordova MD LAB - SEROLOGY ORDER MARIAN [facility] ([facility]) [address] [place] [address], [facility] * HEPATITIS B SURFACE ANTIBODY QUANT (12/28/2017 10:34 AM CDT) Hepatitis B Virus Surface Antibody <3.10 IU/L 12/29/2017 8:41 PM CDT [facility] ([facility]) Comment: The anti-HBs is less than 10 IU/L and is therefore negative. There is no evidence of recovery from hepatitis B infection or evidence of antibody response to HBV vaccination. An anti-HBs result greater than or equal to 10 IU/L implies immunity. For post-vaccination antibody testing guidelines for the general public refer to MMWR 2005/Vol. 54(No. 16);03-22, and for healthcare workers refer to MMWR February 16, 2013/Vol. 62(No. 10);03-18. Reference Interval: anti-HBs 9.99 IU/L or less ....... Negative 10.00 IU/L or greater .... Positive Results greater than 1,000.00 IU/L are reported as greater than 1,000.00 IU/L. This assay should not be used for blood donor screening, associated re-entry protocols, or for screening Human Cell, Tissues and Cellular and Tissue-Based Products (HCT/P). Performed by [facility], [address] [place], [place] [id number] www.[employer], Gregory Rowan MD, Lab. Director Blood BLOOD SPECIMEN / Unknown Lab Venipuncture / Unknown 12/28/2017 10:34 AM CDT 12/28/2017 11:08 AM CDT Serina Cordova MD LAB - SEROLOGY ORDER MARIAN [facility] ([facility]) [address] [place], [place] [address] * (ABNORMAL) SMOOTH MUSCLE ANTIBODY TITER (12/28/2017 10:34 AM CDT) Smooth Muscle Antibody IgG Titer 1:20(H) <1:20 01/01/2018 7:07 AM SUPPLIER RELATIONSHIP DIRECTOR [facility] ([facility]) Comment: INTERPRETIVE INFORMATION: ??Smooth Muscle Ab, IgG Titer ??Less than 1:20 ........ Negative - No antibody detected. ??1:20 - 1:80 ??.......... Weak Positive - Suggest repeat ?in two to three weeks with fresh ?specimen. ??1:160 or greater ...... Positive - Suggestive of ?autoimmune hepatitis or chronic ?active hepatitis. Performed by [facility], [address] [place] [address] www.[employer], Gregory Rowan MD, Lab. Director Blood BLOOD SPECIMEN / Unknown Lab Venipuncture / Unknown 12/28/2017 10:34 AM CDT 12/28/2017 11:07 AM CDT Serina Cordova MD LAB - CHEMISTRY MICHEAL GONZALES Performing Organization Address [facility] de Phone Number [facility]) [address] [place] [address] * HEPATITIS B CORE ANTIBODY (12/28/2017 10:34 AM CDT) Pathologist [facility] Hepatitis B Core Virus Antibody Total Negative Negative 12/29/2017 9:25 PM CDT [facility] ([facility]) Comment: INTERPRETIVE INFORMATION: Hepatitis B Core Ab (Total) This assay should not be used for blood donor screening, associated re-entry protocols, or for screening Human Cells, Tissues and Cellular and Tissue-Based Products (HCT/P). Performed by [facility], [address] [place] [address] www.[employer], Gregory Rowan MD, Lab. Director Blood BLOOD SPECIMEN / Unknown Lab Venipuncture / Unknown 12/28/2017 10:34 AM CDT 12/28/2017 11:07 AM CDT Serina Cordova MD LAB - CHEMISTRY MICHEAL GONZALES Performing Organization Address [facility] Co de Phone Number [facility]) [address] [place] [address] * ENDOMYSIAL ANTIBODY IGA (12/28/2017 10:33 AM CDT) Pathologist [facility] Endomysial Antibody, IgA Titer <1:10 <1:10 12/30/2017 5:00 PM CDT [facility] ([facility]) Comment: INTERPRETIVE INFORMATION: Endomysial Antibody, IgA Titer The endomysial antigen has been identified as the protein cross-linking enzyme known as tissue transglutaminase. Performed by [facility] [address] www.[employer], Gregory Rowan MD, Lab. Director Blood BLOOD SPECIMEN / Unknown Lab Venipuncture / Unknown 12/28/2017 10:33 AM CDT 12/28/2017 11:07 AM CDT Serina Cordova MD LAB - CHEMISTRY MICHEAL GONZALES Performing Organization Address [facility] Co de Phone Number [employer]) [address] [place] [address] * [id number] BLOOD (12/28/2017 10:33 AM CDT) Pathologist [facility] [id number] ypsin 118 90 - 200 mg/dL 12/29/2017 7:10 PM CDT [facility] ([facility]) Comment: To convert to umol/L, multiply mg/dL by 0.185 Performed by [facility], [address] [place] [id number] www.[employer], Gregory Rowan MD, Lab. Director Blood BLOOD SPECIMEN / Unknown Lab Venipuncture / Unknown 12/28/2017 10:33 AM CDT 12/28/2017 11:08 AM CDT Serina Cordova MD LAB - CHEMISTRY MICHEAL GONZALES Performing Organization Address [facility]/ZIP Co de Phone Number [facility] ([facility]) [address] [place] [address] * ENDOSCOPY, COLON, DIAGNOSTIC (10/11/2017 12:54 PM CDT) Pathologist [facility] Report Endoscopy POC _ Patient Name: Anders Morales ? Date of : 2005 ? Admit Type: Outpatient Age: 12 ? Gender: Male Attending MD: Serina Cordova , ? Order #: [id number] _ Procedure: ? Colonoscopy Indications: ? Hematochezia Providers: ? Serina Cordova Referring MD: ?Sary Franklin MD Medicines: ? Monitored Anesthesia Care Complications: ? No immediate complications. Estimated blood loss: Minimal. _ Procedure: ? After I obtained informed consent, the scope was passed ? under direct vision. Throughout the procedure, the ? patient's blood pressure, pulse, and oxygen saturations ? were monitored continuously. The Colonoscope was ? introduced through the anus and advanced to the terminal ? ileum. The colonoscopy was performed without difficulty. ? The patient tolerated the procedure well. The quality of ? the bowel preparation was good. Findings: ? The perianal and digital rectal examinations were normal. ? A localized area of moderately erythematous and edematous mucosa, and ? mucosal alterations around it was found in the distal rectum. Biopsies ? were taken with a cold forceps for histology. Estimated blood loss was ? minimal. ? The entire examined colon and terminal ileum appeared otherwise normal. Impression: ?- Erythematous / edematous mucosa in the distal rectum on ? grounds of abnormal mucosa in the surrounding area (loss ? of vascularity, and thick/coblestone d mucosa). Biopsied. ? - The entire examined colon is otherwise normal. biopsies ? taken from the TI throughout the colon and multiple ? biopsies from the lesion and surrounding area in the ? rectum. Recommendation: ?- Discharge patient to home (with parent). ? - Await pathology results. ? - Return to GI clinic in 4 weeks. ? Procedure Code(s): ? --- Professional --- ? 36251, Colonoscopy, flexible; with biopsy, single or multiple ? --- Technical --- ? 95240, Colonoscopy, flexible; with biopsy, single or multiple Diagnosis Code(s): ? --- Professional --- ? K92.1, Melena (includes Hematochezia) ? --- Technical --- ? K92.1, Melena (includes Hematochezia) CPT copyright 2015 [employer]. All rights reserved. The codes documented in this report are preliminary and upon photoflash powder mixer review may be revised to meet current compliance requirements. Dr. Serina Cordova MD Serina Cordova, 10/11/2017 2:49:06 PM Number of Addenda: 0 Note Initiated On: 10/10/2017 12:54 PM Procedure Date: ? 10/11/2017 12:54:00 PM ? This report has been signed electronically. [facility] 10/11/2017 12:5 4 PM CDT Avis Perea RANGE MECHANIC-BELT MACHINE OPERATOR GI PROCED URE ORDERABLES Performing Organization Address City/State/[facility] Co de Phone Number [facility] [address] [place] [address] * CULTURE MRSA (09/14/2017 10:47 AM CDT) Only the most recent of3 resultswithin the time period is included. Culture Negative for methicillin-resist ant Staphylococcus aureus (MRSA) MARÍA 09/16/2017 6:15 AM CDT [facility] Microbiology SPECIMEN FROM NASOPHARYNGEAL STRUCTURE / Unknown Collection / Unknown 09/14/2017 10:47 AM CDT 09/14/2017 11:06 AM CDT Avis Perea RANGE MECHANIC-BELT MACHINE OPERATOR LAB - MARÍA ROBIOLOGY ORDERABLES [facility] [address] [place] [address], [facility] [phone] * XR FOOT 3+ VW RIGHT (06/07/2016 12:58 PM CDT) Only the most recent of3 resultswithin the time period is included. Anatomical Region Laterality Modality Ankle / Foot Radiographic Tran ging 06/07/2016 1:12 PM CDT Impressions 06/07/2016 3:29 PM CDT No apparent fracture or dislocation. Narrative 06/07/2016 3:29 PM CDT RIGHT FOOT, THREE VIEWS (06/07/2016) HISTORY: Trauma with injury and foot pain. Patient states he rolled is foot stepping on a stump. FINDINGS: Immature skeleton. The apophysis at the base of the fifth metatarsal is not yet fused. No apparent fracture or dislocation. Bones appear well mineralized. Incidental note made of small area of benign sclerosis in lateral mid to distal fifth metatarsal shaft. Procedure Note Brodie Simmons MD - 06/07/2016 RIGHT FOOT, THREE VIEWS (06/07/2016) HISTORY: Trauma with injury and foot pain. Patient states he rolled is foot stepping on a stump. FINDINGS: Immature skeleton. The apophysis at the base of the fifth metatarsal is not yet fused. No apparent fracture or dislocation. Bones appear well mineralized. Incidental note made of small area of benign sclerosis in lateral mid to distal fifth metatarsal shaft. IMPRESSION No apparent fracture or dislocation. Vicky Ríos RANGE MECHANIC-BELT MACHINE OPERATOR DIAGNOSTIC IMAGING ORDERABLES Care Teams Enamel Sprayer Relationship Specialty Start Date End Date Raya Wheeler PA [address] [place] [address] PCP - General Physician Inspector Filters 06/15/22
--- OUTSIDE RECORDS SUMMARY | 2024-03-23 21:08 | XMS_ITS | Referral Summary ---
Author Organization [facility] Address [address] [facility] [place] [address] Care Team Providers Care House Mother Name Role Phone Raya Wheeler Primary Care Provider [phone] Source Comments [facility],non-owned Affiliates and Associated Physician Practices is amultiple site organization consisting of ambulatory clinics and hospital sitesin [place], [place], [place] and [place]. This disclosure is being madepursuant to the Care Everywhere program and may not contain all information available regarding this patient. Last updated 17.[facility] Encounters Date Type Department Care Team Description 01/02/2024 Refill [facility] Weight Management Services [address] [place] [address] [phone] Lamar Martinez, DO Refill Request from Last 3 Months Allergies No known active allergies Medications * [...] fluticasone propionate (FLONASE) 50 MCG/ACT nasal spray Dubois 1 (one) spray into each nostril once [...] 10/26/2023 vitamin D, ergocalciferol, (Drisdol) 1.25 MG (02323 UT) capsuleIndications :Vitamin D Deficiency Take 1 (one) capsule by mouth every 7 days Reasons: Vitamin D Deficiency 4 capsule 3 08/16/2023 Active sodium chloride (Beauregard; Baby [place]) 0.65 % nasal sprayIndications:E pistaxis Dubois 1 (one) spray into each nostril as [...] leeding 04/19/2023 Overview (04/19/2023): Per colonoscopy at [facility] 10-10-17, bx confirmed Pre-diabetes 12/20/2022 ADHD 06/15/2022 [...] 05/10/2021 05/24/2021 Nausea and vomiting 05/10/2021 06/16/19 Appendicitis 05/10/2021 06/15/2022 Steatohepatitis 09/16/2020 06/15/2022 Vitamin [...] estine without complication 06/15/2022 Overweight 06/15/2022 Immunizations Name Administration Dates Next Due DTAP/HEP B/IPV 2003,2003,2003 DTaP VACCINE IM (6wk-6yrs) 08/30/2007,08/18/2004 HIB VACCINE 2003,2003,2003 Human Papilloma Virus Braydon valent Vaccine 05/22/2015,09/25/2014 INFLUENZA VACCINE 01/02/2009,02/20/2004 INFLUENZA VACCINE, QUADR. (F LUZONE; FLULAVAL; FLUARIX; AFLURIA QUADRIVALENT; 6MO+), 0.5 ML (IIV4) 12/20/2022,02/08/2018,11/29/2016 MENINGOCOCCAL CONJUGATE (MCV4P) 11/20/2020,09/25 MMR 02/20/2004 MMR/VARICELLA 08/30/2007 PNEUMOCOCCAL PCV7 CONJ, PEDS 02/20/2004, 2003,2003,04/26 POLIO IPV 08/30/2007 TDAP (7yrs+) 09/25/2014 VARICELLA 08/18/2004 Social History Tobacco Use Types Packs/Day Years [...] Mass Index 50.57 10/26/2023 10:00 AM CDT Functional Status Functional Status Response Date of Assess ment Is person deaf or have serious hearing difficult y? No 06/23/2023 Is person blind or have serious difficulty seein g? No 06/23/2023 Does person have serious dif ficulty walking/climbing stairs? No 06/23/2023 Does person have difficulty dressing/bathing? No 06/23/2023 Does person have difficulty doing errands alone? No 06/23/2023 Cognitive Status Response Date of Assessm ent Does person have difficulty concentrating/remembering/making decisions? No 06/23/2023 Plan of Treatment Not on file Procedures Procedure Name Priority Date/Time Associated Diagnosis Comments HEPATITIS C ANTIBODY Routine 09/12/2020 10:58 AM CDT Elevated liver enzymes from Last 3 Months or Most Recently Relevant to Health Maintenance Results * HEPATITIS C ANTIBODY (09/12/2020 10:58 AM CDT) Hepatitis C Antibody Non-react carmen Non-reac tive 09/12/2020 1:53 PM CDT [facility] Comment:Hepatitis C Antibody screen indicates [...] Bustos MD LAB - CHEMISTRY MICHEAL GONZALES [facility] [address] [place] [address], [facility] [phone] from Last 3 Months or Most Recently Relevant to Health Maintenance Advance Directives * Full Code (Latest Code Status on File) Date Activated Date Inactivated Comments 05/10/2021 2:13 PM 05/11/2021 2:14 PM Care Teams House Mother Relationship Specialty Start Date End Date Raya Wheeler PA [address] [place] [address] PCP - General Physician Gas Engine Repairer 06/15/22
[2024-03-23 22:19] VITALS: BP 118/86; PULSE 86; RESP 16; TEMP 36.6; O2SAT 98
== END 2024-03-23 22:20 | disposition home or self-care (01) ==
PROVIDERS: Registered Nurse; Emergency Provider Physician Assistant
DX: J06.9 Acute upper respiratory infection, unspecified (principal); R11.2 Nausea with vomiting, unspecified; Z20.822 Contact with and (suspected) exposure to COVID-19; J45.909 Unspecified asthma, uncomplicated
CPT/HCPCS: 71046; 87637; 87651; 99283